=== PATIENT | female | born 1960 | race Caucasian/White ===

== ENCOUNTER 2016-12-15 18:29 | Inpatient (IN) | payer BC ==
[~2016-12-15] VITALS: Ht 172.7 cm; Wt 144.2 kg
[2016-12-15 18:34] VITALS: BP 142/67; PULSE 87; RESP 16; TEMP 98.2; O2SAT 98
--- NOTE | 2016-12-15 18:53 | PD ---
HPI . Altered mental status x few hours Chief Complaint: Altered Mental Status Time Seen by Provider: 18:53 Travel History International Travel<30 days: No Contact w/Intl Traveler<30days: No Traveled to known affect area: No History of Present Illness HPI 56-year-old female with history of diabetes, peripheral neuropathy, hypertension , and hyperlipidemia here with a few hours worth of altered mental status. Patient was with her friends and all of sudden became somewhat confused. She was telling them that she was in [place]. Patient reports that she had a fever a week ago that subsided. However he suddenly reappeared today. She does have what appears to be an abscess in her right groin and tells me that that's been there for about 2-3 days. She's not had time to show this to anyone and has not taken any medications for this. She has no other complaints. She is allergic to penicillin. She is accompanied by several of her friends. Per her friends, they were at a conference and patient was dozing off. Initially the thought she was just sleepy, however they noticed that she was more lethargic than usual. She also had some chills. Apparently when patient went to stand up she was just wobbling a little bit and had some visible shaking , which friends attributed to chills. She was telling them that she was living in [place]. She also did not recall their names. PFSH Past Medical History Diabetes: Yes Social History Tobacco Use: No Allergies-Medications (Allergen,Severity, Reaction): Coded Allergies: Penicillin (Verified Allergy, Unknown, 12/15/16) Reported Meds & Prescriptions Reported Meds & Active Scripts Active Reported Metformin (Metformin HCl) 500 Mg Tab 500 Mg PO TIDPC With meals Percocet (Oxycodone-Acetaminophen) 5-325 mg Tab 1 Tab PO DAILY PRN Review of Systems General / Constitutional: No: Fever Eyes: No: Visual changes HENT: No: Headaches Cardiovascular: No: Chest Pain or Discomfort Respiratory: No: Shortness of Breath Gastrointestinal: No: Abdominal Pain Genitourinary: No: Dysuria Musculoskeletal: No: Pain Skin: No Rash Neurologic: No: Weakness Psychiatric: No: Depression Endocrine: No: Polydipsia Hematologic/Lymphatic: No: Easy Bruising Physical Exam Narrative GENERAL: AAO x 3, no acute distress, Well-nourished, well-developed patient. morbidly obese SKIN: Warm and dry. No visible rashes or bruising. large 9 cm induration in the right groin, tender to touch, erythematous and warm. HEAD: Normocephalic and atraumatic. EYES: No scleral icterus. No injection or drainage. EOM intact, PERRLA ENT: No nasal drainage noted. Mucous membranes pink. Airway patent. NECK: Supple, trachea midline. No JVD. no lymphadenopathy CARDIOVASCULAR: Regular rate and rhythm without murmurs, gallops, or rubs. RESPIRATORY: Breath sounds equal bilaterally. No accessory muscle use. No rhonchi or rales. GASTROINTESTINAL: Abdomen soft, non-tender, nondistended. No rebound or guarding. EXTREMITIES: No cyanosis or edema. BACK: No obvious deformity. No CVA tenderness. NEURO: CN II-12 intact, supervisor sample strength normal b/l, UE and LE 5/5, no focal deficits PSYCH: AAO x 3, normal affect. Data Data Last Documented VS Vital Signs Date Time Temp Pulse Resp B/P Pulse Ox O2 Delivery O2 Flow Rate FiO2 12/15/16 19:03 102.7 92 16 135/60 95 Room Air Orders Complete Blood Count With Diff (12/15/16 18:59) Comprehensive Metabolic Panel (12/15/16 18:59) Prothrombin Time / Inr (Pt) (12/15/16 18:59) Act Partial Throm Time (Ptt) (12/15/16 18:59) Lactic Acid Sepsis Protocol (12/15/16 18:59) Urinalysis - C+S If Indicated (12/15/16 18:59) Blood Culture (12/15/16 18:59) Chest, Single Ap (12/15/16 18:59) Blood Glucose (12/15/16 18:59) Ecg Monitoring (12/15/16 18:59) Iv Access Insert/Monitor (12/15/16 18:59) Oximetry (12/15/16 18:59) Oxygen Administration (12/15/16 18:59) Us Soft Tissue (12/15/16 ) Acetaminophen (Tylenol) (12/15/16 19:30) Sodium Chlor 0.9% 1000 Ml Inj (Ns 1000 M (12/15/16 19:30) Lidocai-Epi 1%-1:100,000 Inj (Xylocaine- (12/15/16 19:58) Aztreonam Inj (Azactam Inj) (12/15/16 20:12) Metronidazole 500 Mg Inj (Flagyl 500 Mg (12/15/16 20:12) Vancomycin Inj (Vancomycin Inj) (12/15/16 20:12) Admit Order (Ed Use Only) (12/15/16 20:12) Labs Laboratory Tests Test 12/15/16 19:05 White Blood Count 15.6 TH/MM3 Red Blood Count 4.33 MIL/MM3 Hemoglobin 12.6 GM/DL Hematocrit 38.3 % Mean Corpuscular Volume 88.5 FL Mean Corpuscular Hemoglobin 29.1 PG Mean Corpuscular Hemoglobin 32.8 % Concent Red Cell Distribution Width 15.5 % Platelet Count 211 TH/MM3 Mean Platelet Volume 10.5 FL Neutrophils (%) (Auto) 72.6 % Lymphocytes (%) (Auto) 14.1 % Monocytes (%) (Auto) 12.0 % Eosinophils (%) (Auto) 1.0 % Basophils (%) (Auto) 0.3 % Neutrophils # (Auto) 11.3 TH/MM3 Lymphocytes # (Auto) 2.2 TH/MM3 Monocytes # (Auto) 1.9 TH/MM3 Eosinophils # (Auto) 0.2 TH/MM3 Basophils # (Auto) 0.0 TH/MM3 CBC Comment DIFF FINAL Differential Comment Prothrombin Time 11.4 SEC Prothromb Time International 1.0 RATIO Ratio Activated Partial 28.7 SEC Thromboplast Time Sodium Level 134 MEQ/L Potassium Level 4.2 MEQ/L Chloride Level 102 MEQ/L Carbon Dioxide Level 23.9 MEQ/L Anion Gap 8 MEQ/L Blood Urea Nitrogen 24 MG/DL Creatinine 1.01 MG/DL Estimat Glomerular Filtration 57 ML/MIN Rate Random Glucose 168 MG/DL Lactic Acid Level 1.7 mmol/L Calcium Level 8.3 MG/DL Total Bilirubin 0.3 MG/DL Aspartate Amino Transf 19 U/L (AST/SGOT) Alanine Aminotransferase 20 U/L (ALT/SGPT) Alkaline Phosphatase 118 U/L Total Protein 7.1 GM/DL Albumin 3.0 GM/DL MDM Medical Decision Making Medical Screen Exam Complete: Yes Emergency Medical Condition: Yes Medical Record Reviewed: Yes Differential Diagnosis sepsis, inguinal abscess, less likely CVA Narrative Course 56-year-old female here with altered mental status. She is febrile. I believe her symptoms are related to an abscess that she has in her right inguinal area. IV access was obtained. Patient placed on continuous cardiac monitoring. Labs , chest x-ray and soft tissue ultrasound have been ordered. Tylenol for fever. IV fluids started. Laboratory Tests Test 12/15/16 19:05 White Blood Count 15.6 TH/MM3 Red Blood Count 4.33 MIL/MM3 Hemoglobin 12.6 GM/DL Hematocrit 38.3 % Mean Corpuscular Volume 88.5 FL Mean Corpuscular Hemoglobin 29.1 PG Mean Corpuscular Hemoglobin 32.8 % Concent Red Cell Distribution Width 15.5 % Platelet Count 211 TH/MM3 Mean Platelet Volume 10.5 FL Neutrophils (%) (Auto) 72.6 % Lymphocytes (%) (Auto) 14.1 % Monocytes (%) (Auto) 12.0 % Eosinophils (%) (Auto) 1.0 % Basophils (%) (Auto) 0.3 % Neutrophils # (Auto) 11.3 TH/MM3 Lymphocytes # (Auto) 2.2 TH/MM3 Monocytes # (Auto) 1.9 TH/MM3 Eosinophils # (Auto) 0.2 TH/MM3 Basophils # (Auto) 0.0 TH/MM3 CBC Comment DIFF FINAL Differential Comment Prothrombin Time 11.4 SEC Prothromb Time International 1.0 RATIO Ratio Activated Partial 28.7 SEC Thromboplast Time Sodium Level 134 MEQ/L Potassium Level 4.2 MEQ/L Chloride Level 102 MEQ/L Carbon Dioxide Level 23.9 MEQ/L Anion Gap 8 MEQ/L Blood Urea Nitrogen 24 MG/DL Creatinine 1.01 MG/DL Estimat Glomerular Filtration 57 ML/MIN Rate Random Glucose 168 MG/DL Lactic Acid Level 1.7 mmol/L Calcium Level 8.3 MG/DL Total Bilirubin 0.3 MG/DL Aspartate Amino Transf 19 U/L (AST/SGOT) Alanine Aminotransferase 20 U/L (ALT/SGPT) Alkaline Phosphatase 118 U/L Total Protein 7.1 GM/DL Albumin 3.0 GM/DL Last Impressions Chest X-Ray 12/15/16 1859 Signed Impressions: Service Date/Time: Thursday, December 15, 2016 18:57 - CONCLUSION: No acute disease. David Fermin MD Soft Tissue Ultrasound 12/15/16 0000 Signed Impressions: Service Date/Time: Thursday, December 15, 2016 19:03 - CONCLUSION: 1. Complex fluid collection in right groin as above. Differential diagnosis includes infection and abscess. David Fermin MD Patient gave verbal consent to I&D. I&D performed by Dr. Smith, please refer to her note for procedure details. Antibiotics started. Dr. Smith discussed the case with Dr. Ruiz for admission. Patient was in agreement with recommendations for admission. Diagnosis Primary Impression: Sepsis Qualified Code: A41.9 - Sepsis, due to unspecified organism Additional Impression: Abscess Admitting Information Admitting Physician Requests: Admit Condition: Stable Wanda Lutz Dec 15, 2016 18:53
[2016-12-15 19:01] VITALS: RESP 20; O2SAT 94
[2016-12-15 19:03] VITALS: BP 135/60; PULSE 92; RESP 16; TEMP 102.7; O2SAT 95
--- NOTE | 2016-12-15 19:25 | RADRPT ---
EXAM DATE/TIME: 12/15/2016 18:57 [facility] COMPARISON: No previous studies available for comparison. INDICATIONS : Fever. MEDICAL HISTORY : Hypercholesterolemia. Hypertension Diabetes mellitus type II. SURGICAL HISTORY : Hysterectomy. ENCOUNTER: Initial ACUITY: 1 day PAIN SCORE: 0/10 LOCATION: Bilateral chest FINDINGS: A single view of the chest demonstrates the lungs to be symmetrically aerated without evidence of mas s, infiltrate or effusion. The cardiomediastinal contours are unremarkable. Osseous structures are intact. CONCLUSION: No acute disease. David Fermin MD on December 15, 2016 at 19:22 Board Certified Radiologist. This report was verified electronically.
[2016-12-15] MEDS ORDERED: SODIUM CHLOR 0.9% 1000 ML INJ 1,000 ML IV ONE (19:30)
[2016-12-15] MEDS ORDERED: ACETAMINOPHEN 325 MG TAB PO ONE (19:30)
[2016-12-15 19:40] LABS: AUTOMATED NEUTROPHIL # 11.3 TH/MM3 (1.8-7.7); BASOPHIL % 0.3 % (0.0-2.0); EOSINOPHIL # 0.2 TH/MM3 (0-0.4); HEMATOCRIT 38.3 % (35.0-46.0); HEMO FLAGS DIFF FINAL; LYMPH % 14.1 % (9.0-44.0); LYMPHOCYTE # 2.2 TH/MM3 (1.0-4.8); MEAN CELL VOLUME 88.5 FL (80.0-100.0); MEAN CORPUSCULAR HEMOGLOBIN 29.1 PG (27.0-34.0); MEAN CORPUSCULAR HGB CONC 32.8 % (32.0-36.0); NEUT % 72.6 % (16.0-70.0); PLATELET COUNT 211 TH/MM3 (150-450); RED BLOOD COUNT 4.33 MIL/MM3 (4.00-5.30); RED CELL DISTRIBUTION WIDTH 15.5 % (11.6-17.2); WHITE BLOOD COUNT 15.6 TH/MM3 (4.0-11.0)
--- NOTE | 2016-12-15 19:47 | RADRPT ---
EXAM DATE/TIME: 12/15/2016 19:03 [facility] COMPARISON: No previous studies available for comparison. INDICATIONS : Right groin abscess. MEDICAL HISTORY : Hypercholesterolemia. Hypertension. Diabetes. Right groin redness and swelling. SURGICAL HISTORY : Tubal ligation. Hysterectomy. ENCOUNTER: Initial ACUITY: 1 week PAIN SCORE: 5/10 LOCATION: Right groin. AREA EVALUATED: Right inguinal canal. FINDINGS: There is a complex hypoechoic fluid collection in the right groin measuring up to 2.7 x 0.8 cm and up to 10.8 cm in length. Finding is nonspecific but cannot exclude infection. CONCLUSION: 1. Complex fluid collection in right groin as above. Differential diagnosis includes infection and ab scess. David Fermin MD on December 15, 2016 at 19:44 Board Certified Radiologist. This report was verified electronically.
[2016-12-15 19:51] LABS: APTT (PATIENT) 28.7 SEC (24.3-30.1); PROTHROMBIN TIME - PATIENT 11.4 SEC (9.8-11.6)
[2016-12-15 19:53] LABS: ALT (GPT) 20 U/L (10-53); ANION GAP 8 MEQ/L (5-15); AST (GOT) 19 U/L (15-37); BICARBONATE 23.9 MEQ/L (21.0-32.0); BLOOD UREA NITROGEN 24 MG/DL (7-18); CHLORIDE 102 MEQ/L (98-107); GLOMERULAR FILTRATION RATE 57 ML/MIN (>89); POTASSIUM 4.2 MEQ/L (3.5-5.1); SODIUM (NA) 134 MEQ/L (136-145)
[2016-12-15] MEDS ORDERED: PERC5TAB12 PO (19:54)
[2016-12-15] MEDS ORDERED: METF500T PO (19:54)
[2016-12-15 19:55] LABS: ALKALINE PHOSPHATASE 118 U/L (45-117); TOTAL BILIRUBIN ADULT 0.3 MG/DL (0.2-1.0)
[2016-12-15] MEDS ORDERED: LIDOCAINE 1%/EPINEPHrine 1:100,000 SOLN 30 ML VIAL ONE (19:58)
[2016-12-15] MEDS ORDERED: metroNIDAZOLE 500 MG INJ 100 ML IV STA (20:12)
[2016-12-15] MEDS ORDERED: AZTREONAM INJ 2,000 MG in SODIUM CHLORIDE 0.9% INJ 100 ML IV STA (20:12)
[2016-12-15] MEDS ORDERED: VANCOMYCIN INJ 1,000 MG in SODIUM CHLOR 0.9% 250 ML INJ 250 ML IV STA (20:12)
--- NOTE | 2016-12-15 20:17 | PD ---
Data Data Last Documented VS Vital Signs Date Time Temp Pulse Resp B/P Pulse Ox O2 Delivery O2 Flow Rate FiO2 12/15/16 19:03 102.7 92 16 135/60 95 Room Air Orders Complete Blood Count With Diff (12/15/16 18:59) Comprehensive Metabolic Panel (12/15/16 18:59) Prothrombin Time / Inr (Pt) (12/15/16 18:59) Act Partial Throm Time (Ptt) (12/15/16 18:59) Lactic Acid Sepsis Protocol (12/15/16 18:59) Urinalysis - C+S If Indicated (12/15/16 18:59) Blood Culture (12/15/16 18:59) Chest, Single Ap (12/15/16 18:59) Blood Glucose (12/15/16 18:59) Ecg Monitoring (12/15/16 18:59) Iv Access Insert/Monitor (12/15/16 18:59) Oximetry (12/15/16 18:59) Oxygen Administration (12/15/16 18:59) Us Soft Tissue (12/15/16 ) Acetaminophen (Tylenol) (12/15/16 19:30) Sodium Chlor 0.9% 1000 Ml Inj (Ns 1000 M (12/15/16 19:30) Lidocai-Epi 1%-1:100,000 Inj (Xylocaine- (12/15/16 19:58) Aztreonam Inj (Azactam Inj) (12/15/16 20:12) Metronidazole 500 Mg Inj (Flagyl 500 Mg (12/15/16 20:12) Vancomycin Inj (Vancomycin Inj) (12/15/16 20:12) Admit Order (Ed Use Only) (12/15/16 20:12) Labs Laboratory Tests Test 12/15/16 19:05 White Blood Count 15.6 TH/MM3 Red Blood Count 4.33 MIL/MM3 Hemoglobin 12.6 GM/DL Hematocrit 38.3 % Mean Corpuscular Volume 88.5 FL Mean Corpuscular Hemoglobin 29.1 PG Mean Corpuscular Hemoglobin 32.8 % Concent Red Cell Distribution Width 15.5 % Platelet Count 211 TH/MM3 Mean Platelet Volume 10.5 FL Neutrophils (%) (Auto) 72.6 % Lymphocytes (%) (Auto) 14.1 % Monocytes (%) (Auto) 12.0 % Eosinophils (%) (Auto) 1.0 % Basophils (%) (Auto) 0.3 % Neutrophils # (Auto) 11.3 TH/MM3 Lymphocytes # (Auto) 2.2 TH/MM3 Monocytes # (Auto) 1.9 TH/MM3 Eosinophils # (Auto) 0.2 TH/MM3 Basophils # (Auto) 0.0 TH/MM3 CBC Comment DIFF FINAL Differential Comment Prothrombin Time 11.4 SEC Prothromb Time International 1.0 RATIO Ratio Activated Partial 28.7 SEC Thromboplast Time Sodium Level 134 MEQ/L Potassium Level 4.2 MEQ/L Chloride Level 102 MEQ/L Carbon Dioxide Level 23.9 MEQ/L Anion Gap 8 MEQ/L Blood Urea Nitrogen 24 MG/DL Creatinine 1.01 MG/DL Estimat Glomerular Filtration 57 ML/MIN Rate Random Glucose 168 MG/DL Lactic Acid Level 1.7 mmol/L Calcium Level 8.3 MG/DL Total Bilirubin 0.3 MG/DL Aspartate Amino Transf 19 U/L (AST/SGOT) Alanine Aminotransferase 20 U/L (ALT/SGPT) Alkaline Phosphatase 118 U/L Total Protein 7.1 GM/DL Albumin 3.0 GM/DL MDM Supervised Visit with [facility]: Yes Narrative Course I, Dr. Smith, have reviewed the advance practice practioner's documentation and am in agreement, met with the patient face to face, made the diagnosis, and the medical decision making was done by me. *My assessment and Findings: 56-year-old morbidly obese diabetic female here with altered mental status, fever. She is here vacationing for continuing education from [place]. Has had several days of swelling and redness in the right groin. Exam shows induration and questionable fluctuance in the right groin. Cellulitis versus abscess. Patient is slightly tachycardic, febrile and confused, believe she still in [place]. Patient was given IV fluids, antibiotics therapy, ultrasound shows abscess within the right groin. I&D performed by myself, please see procedure note. Patient has leukocytosis, though thankfully no lactic acidosis. Will be admitted for sepsis and IV antibiotic therapy, Gen. surgery consult should her wound need further drainage. Critical Care Narrative Aggregate critical care time was 40 minutes. Time to perform other separately billable procedures was not included in the critical care time. My time did not include minutes spent treating any other patients simultaneously or on activities that did not directly contribute to the patient's treatment. The services I provided to this patient were to treat and/or prevent clinically significant deterioration that could result in: Cardiopulmonary decompensation, , disability I provided critical care services requiring my management, as noted below: Chart data review, documentation time, medication orders and management, vital sign assessments/reviewing monitor data, ordering and reviewing lab tests, ordering and interpreting/reviewing x-rays and diagnostic studies, care of the patient and discussion of the patient with the admitting physicians. Procedures Procedure Narrative INCISION AND DRAINAGE OF ABSCESS: The area was prepped and was sterilely draped. A subcutaneous wheal of 1% Xylocaine epinephrine with a total number 12 mL was used to anesthetize the area. The area was properly anesthetized. A number 11 blade scalpel was used to make a cruciate 1.5-cm incision across the area of the abscess. Cultures were obtained. The abscess was drained an irrigated with normal saline. Quarter inch iodoform packing was placed in the wound. Sterile dressing applied. Patient advised to have packing removed in two days. Sepsis Criteria SIRS Criteria (2 or more): Temp > 100.9 or < 96.8, Heart rate over 90, WBC > 27139, < 4000 or > 10% bands Sepsis Criteria (SIRS+source): Infect source susp/known Criteria Outcome: Meets SIRS criteria, Meets sepsis criteria Diagnosis Primary Impression: Sepsis Qualified Code: A41.9 - Sepsis, due to unspecified organism Additional Impression: Abscess Admitting Information Admitting Physician Requests: Admit Condition: Stable Mitzy Smith MD Dec 15, 2016 20:16
--- NOTE | 2016-12-15 20:26 | HHI.HP ---
[facility] No Primary Care Physician Admission Diagnosis sepsis, right groin abscess Diagnoses: (1) Sepsis Diagnosis: Principal (2) Groin abscess Diagnosis: Principal (3) Renal insufficiency Diagnosis: Principal (4) Dehydration Diagnosis: Principal (5) DM (diabetes mellitus) Diagnosis: Principal Travel History International Travel<30 Days: No Contact w/Intl Traveler <30 Da: No Traveled to Known Affected Are: No History of Present Illness This is a 56-year-old female with PMH of HTN, Hyperlipidemia and DM who was brought to the ER secondary to episode of confusion noted by friends. Patient is here for a conference and visiting from [place] however believed she was still in her home town. Friends became concerned and called EMS. Pt does note fever today. Also stated she has abscess in right groin x3 days however did not seek medical attention for it. On arrival, BP 142/67, HR 87, O2 sat 98% on RA, Temp 102.7. He 15.6. Creatinine 1.01. GFR 57. Lactic Acid 1.7. INR 1.0. CXR with no acute findings. Soft Tissue US complex fluid collection right groin. On exam, pt noted to have large groin abscess approx 10cm wide, 3cm deep, s/p I& D in ER w/ significant amount of foul-smelling purulent drainage. Gen Sx consulted for further eval. S/p Blood/Wound Culture in ER, Vanc/Azactam/Flagyl due to PCN Allergy. Review of Systems Except as stated in HPI: all other systems reviewed are Neg ROS: 14 point review of systems otherwise negative. Past Family Social History Past Medical History PMH: HTN, Hyperlipidemia and DM Past Surgical History PAST SURGICAL HISTORY: Tubal Ligation, Hysterectomy Allergies: Coded Allergies: Penicillin (Verified Allergy, Unknown, 12/15/16) Family History PAST FAMILY HISTORY: Reviewed. No h/o DM or CAD Social History PAST SOCIAL HISTORY: Negative for alcohol, tobacco or drugs. Physical Exam Vital Signs Vital Signs Date Time Temp Pulse Resp B/P Pulse Ox O2 Delivery O2 Flow Rate FiO2 12/15/16 19:03 102.7 92 16 135/60 95 Room Air 12/15/16 19:01 20 94 Room Air 12/15/16 18:34 98.2 87 16 142/67 98 Physical Exam PE: GENERAL: Middle-aged white female in no acute distress. HEENT: PERRLA, EOMI. No scleral icterus or conjunctival pallor. No lid lag or facial droop. CARDIOVASCULAR: Regular rate and rhythm. No obvious murmurs to auscultation. No chest tenderness to palpation. RESPIRATORY: No obvious rhonchi or wheezing. Clear to auscultation. Breath sounds equal bilaterally. GASTROINTESTINAL: Abdomen soft, non-tender, nondistended. BS normal. MUSCULOSKELETAL: Extremities without clubbing, cyanosis, or edema. No obvious deformities. Right groin abscess, s/p I&D NEUROLOGICAL: Awake, alert and oriented x4. No focal neurologic deficits. Moving both upper and lower extremities spontaneously. Laboratory Laboratory Tests Test 12/15/16 19:05 White Blood Count 15.6 Red Blood Count 4.33 Hemoglobin 12.6 Hematocrit 38.3 Mean Corpuscular Volume 88.5 Mean Corpuscular Hemoglobin 29.1 Mean Corpuscular Hemoglobin 32.8 Concent Red Cell Distribution Width 15.5 Platelet Count 211 Mean Platelet Volume 10.5 Neutrophils (%) (Auto) 72.6 Lymphocytes (%) (Auto) 14.1 Monocytes (%) (Auto) 12.0 Eosinophils (%) (Auto) 1.0 Basophils (%) (Auto) 0.3 Neutrophils # (Auto) 11.3 Lymphocytes # (Auto) 2.2 Monocytes # (Auto) 1.9 Eosinophils # (Auto) 0.2 Basophils # (Auto) 0.0 CBC Comment DIFF FINAL Differential Comment Prothrombin Time 11.4 Prothromb Time International 1.0 Ratio Activated Partial 28.7 Thromboplast Time Sodium Level 134 Potassium Level 4.2 Chloride Level 102 Carbon Dioxide Level 23.9 Anion Gap 8 Blood Urea Nitrogen 24 Creatinine 1.01 Estimat Glomerular Filtration 57 Rate Random Glucose 168 Lactic Acid Level 1.7 Calcium Level 8.3 Total Bilirubin 0.3 Aspartate Amino Transf 19 (AST/SGOT) Alanine Aminotransferase 20 (ALT/SGPT) Alkaline Phosphatase 118 Total Protein 7.1 Albumin 3.0 Date/Time Procedure Status Source Growth 12/15/16 19:00 Aerobic Blood Culture Received Blood Peripheral Pending 12/15/16 19:00 Anaerobic Blood Culture Received Blood Peripheral Pending Result Diagram: 12/15/16190412/15/161904 Assessment and Plan Problem List: (1) Sepsis ICD Code: A41.9 Status: Acute (2) Groin abscess ICD Code: L02.214 Status: Acute (3) Dehydration ICD Code: E86.0 Status: Acute (4) Renal insufficiency ICD Code: N28.9 Status: Acute (5) DM (diabetes mellitus) ICD Code: E11.9 Status: Acute Assessment and Plan A/P: 1. Sepsis: AMS, Temp 102.7, HR 92, WBC 15.1, Source-Right Groin Abscess. S/p Blood/Wound Cultures, Vanc/Azactam/Flagyl. Follow up cultures, continue w/ IV Abx. 2. Right Groin Abscess: x2-3 days, no previous antibiotics, did not seek medical attention, now w/ sepsis/AMS. S/p I&D in ER of 10cm x 3cm abscess w/ foul-smelling, purulent drainage. Follow up cultures. Gen Sx consulted by ER physician for possible need for surgical debridement. Continue w/ IV Abx. 3. Renal Insufficiency: Creatinine 1.01, no previous labs for comparison. U/ a pending. IVF for hydration. 4. Dehydration: Likely secondary to sepsis. GFR 57. IVF for hydration, repeat labs in am. 5. DM: Sliding scale w/ Accu-Cheks. Hold Metformin in light of renal insufficiency/sepsis. 6. DVT Prophylaxis: Mechanical contraindication secondary to lower ext wound. 7. Social work for d/c planning as needed. 8. Case discussed w/ ER physician at length. Physician Certification 2 Midnight Certification Type: Admission for Inpatient Services Order for Inpatient Services The services are ordered in accordance with Medicare regulations or non- Medicare payer requirements, as applicable. In the case of services not specified as inpatient-only, they are appropriately provided as inpatient services in accordance with the 2-midnight benchmark. Estimated LOS (days): 2 days is the estimated time the patient will need to remain in the hospital, assuming treatment plan goals are met and no additional complications. Post-Hospital Plan: Not yet determined Problem Qualifiers (1) Sepsis: Qualified Code: A41.9 - Sepsis, due to unspecified organism Jailyn Ruiz MD Dec 15, 2016 20:26
[2016-12-15] MEDS ORDERED: DEXTROSE 50% IN WATER 50 ML VIAL(D50) IV PRN (20:30)
[2016-12-15] MEDS ORDERED: ONDANSETRON HCL 4 MG/2 ML VIAL IVP PRN (20:30)
[2016-12-15] MEDS ORDERED: Vancomycin Consult Pharmacy 1 EA OTHER SCH (20:30)
[2016-12-15] MEDS ORDERED: GLUCAGON 1 MG/ML VIAL OTHER PRN (20:30)
[2016-12-15] MEDS ORDERED: ACETAMINOPHEN 325 MG TAB PO PRN (20:30)
[2016-12-15] MEDS ORDERED: MAGNESIUM HYDROXIDE SUSP 30 ML CUP PO PRN (20:30)
[2016-12-15] MEDS ORDERED: SENNOSIDES 8.6 MG TAB PO PRN (20:30)
[2016-12-15] MEDS ORDERED: SODIUM CHLORIDE 0.9% FLUSH 10 ML FLUSH IV FLUSH PRN (20:30)
[2016-12-15] MEDS ORDERED: MORPHINE SULFATE 4 MG/ML INJ IV PRN (20:30)
[2016-12-15] MEDS ORDERED: BISACODYL 10 MG SUPP RECTAL PRN (20:30)
[2016-12-15] MEDS ORDERED: LACTULOSE SYRUP 20 GM/30 ML CUP PO PRN (20:30)
[2016-12-15 20:57] VITALS: BP 138/58; PULSE 88; RESP 14; O2SAT 96
[2016-12-15] MEDS: SODIUM CHLOR 0.9% 1000 ML INJ 1,000 ML IV SCH (21:20)
[2016-12-15] MEDS: DOCUSATE SODIUM 50 MG/SENNA 8.6 MG TAB PO SCH (21:20)
[2016-12-15] MEDS: SODIUM CHLORIDE 0.9% FLUSH 10 ML FLUSH IV FLUSH SCH (21:20)
[2016-12-15] MEDS: INSULIN ASPART SUPPLEMENTAL SCALE SQ SCH (21:20)
[2016-12-15 22:00] VITALS: BP 118/57; PULSE 92; RESP 18; TEMP 98.6; O2SAT 95
[2016-12-15 22:56] VITALS: PULSE 91
[2016-12-15 23:39] LABS: BACTERIA, URINE FEW /hpf; BLOOD, URINE NEG (NEG); GLUCOSE,URINE NEG (NEG); KETONE, URINE NEG (NEG); MUCUS URINE FEW /lpf (OCC); NITRITE,URINE NEG (NEG); PH, URINE 5.5 (5.0-8.5); SQUAMOUS EPITHELIAL CELL URINE 1 /hpf (0-5); URINE COLOR YELLOW (YELLW/STRAW)
[2016-12-15 23:41] LABS: COMMENT (UR) CATH-CULTURE IND; CULTURE IF INDICATED CATH CULTURE IND
[2016-12-16] VITALS (8 sets, daily range): BP systolic 98–151; BP diastolic 51–70; PULSE 73–99; RESP 18–20; TEMP 97.4–100.3; O2SAT 93–97
[2016-12-16] MEDS: metroNIDAZOLE 500 MG INJ 100 ML IV SCH ×3 (06:02→21:24)
[2016-12-16] MEDS: INSULIN ASPART SUPPLEMENTAL SCALE SQ SCH ×4 (06:04→20:15)
[2016-12-16] MEDS: SODIUM CHLOR 0.9% 1000 ML INJ 1,000 ML IV SCH ×2 (06:05→17:02)
[2016-12-16] MEDS: AZTREONAM INJ 1,000 MG in SODIUM CHLORIDE 0.9% INJ 100 ML IV SCH ×3 (06:27→22:20)
[2016-12-16] MEDS ORDERED: TRAM50TA PO (07:53)
[2016-12-16] MEDS ORDERED: IBUP200C PO (07:58)
[2016-12-16] MEDS ORDERED: LISI-515 PO (07:58)
[2016-12-16] MEDS ORDERED: PERC2.5T PO (07:58)
[2016-12-16] MEDS ORDERED: GABA600T PO (08:01)
[2016-12-16] MEDS ORDERED: GLIP5TAB8 PO (08:06)
[2016-12-16] MEDS: VANCOMYCIN INJ 1,250 MG in SODIUM CHLOR 0.9% 250 ML INJ 250 ML IV SCH ×2 (08:11→20:13)
[2016-12-16] MEDS: DOCUSATE SODIUM 50 MG/SENNA 8.6 MG TAB PO SCH ×2 (08:13→20:14)
[2016-12-16] MEDS: SODIUM CHLORIDE 0.9% FLUSH 10 ML FLUSH IV FLUSH SCH ×2 (08:14→20:13)
[2016-12-16] MEDS ORDERED: PHARMACY ORDERED LAB ONE (08:45)
[2016-12-16] MEDS ORDERED: TOPA50TA7 PO (11:18)
[2016-12-16] MEDS ORDERED: LISI-519 PO (11:18)
[2016-12-16] MEDS ORDERED: CETI10CA3 (11:18)
[2016-12-16] MEDS ORDERED: RIBO50TA (11:20)
--- NOTE | 2016-12-16 12:56 | HHI.PR ---
Subjective Remarks Febrile overnight to 100.3. Vital signs stable. Patient continues to complain of pain in her right groin. Endorses fullness and warmth in the area. Endorses subjective fever. Denies nausea/vomiting/diarrhea. Mental status is improved, patient alert and oriented 3. Objective Vitals Vital Signs Date Time Temp Pulse Resp B/P Pulse Ox O2 Delivery O2 Flow Rate FiO2 12/16/16 12:00 99.6 92 20 118/61 94 12/16/16 08:00 Room Air 12/16/16 08:00 98.7 93 20 110/62 95 12/16/16 04:00 100.2 99 18 136/61 93 12/16/16 03:47 Room Air 12/16/16 00:00 Room Air 12/16/16 00:00 100.3 98 18 141/60 97 12/15/16 22:56 91 12/15/16 22:00 98.6 92 18 118/57 95 12/15/16 20:57 88 14 138/58 96 Room Air 12/15/16 19:03 102.7 92 16 135/60 95 Room Air 12/15/16 19:01 20 94 Room Air 12/15/16 18:34 98.2 87 16 142/67 98 I/O 12/15/16 12/15/16 12/15/16 12/16/16 12/16/16 12/16/16 07:00 15:00 23:00 07:00 15:00 23:00 Intake Total 120 ml 1370 ml Output Total 200 ml 850 ml Balance -80 ml 520 ml Intake Oral 120 ml 120 ml IV Total 1250 ml Output Urine Total 200 ml 850 ml # Bowel Movements 0 0 Result Diagram: 12/15/16190412/15/161904 Objective Remarks GENERAL: Middle-aged white female in no acute distress. HEENT: PERRLA, EOMI. No scleral icterus or conjunctival pallor. No lid lag or facial droop. CARDIOVASCULAR: Regular rate and rhythm. No obvious murmurs to auscultation. No chest tenderness to palpation. RESPIRATORY: No obvious rhonchi or wheezing. Clear to auscultation. Breath sounds equal bilaterally. GASTROINTESTINAL: Abdomen soft, non-tender, nondistended. BS normal. MUSCULOSKELETAL: Extremities without clubbing, cyanosis, or edema. No obvious deformities. Right groin abscess, s/p I&D with purulent drainage and packing. 10 cm x 4 cm area of induration and erythema. NEUROLOGICAL: Awake, alert and oriented x4. No focal neurologic deficits. Moving both upper and lower extremities spontaneously. A/P Problem List: (1) Sepsis ICD Code: A41.9 Status: Acute (2) Groin abscess ICD Code: L02.214 Status: Acute (3) Dehydration ICD Code: E86.0 Status: Acute (4) Renal insufficiency ICD Code: N28.9 Status: Acute (5) DM (diabetes mellitus) ICD Code: E11.9 Status: Acute Assessment and Plan 1. Sepsis: Febrile with leukocytosis. Patient presented with altered mental status, now resolved. S/p Blood/Wound Cultures no growth 1 day, Vanc/Azactam/ Flagyl as penicillin allergic. Follow up cultures, continue w/ IV Abx. 2. Right Groin Abscess: 1 week, no previous antibiotics, did not seek medical attention. S/p I&D in ER of 10cm x 3cm abscess w/ foul-smelling, purulent drainage. Follow up cultures. Gen Sx consulted for possible need for surgical debridement. Continue w/ IV Abx. 3. Renal Insufficiency: Creatinine 1.01, no previous labs for comparison. IVF for hydration. 4. UTI: Antibiotics as above 5. Dehydration: Likely secondary to sepsis. GFR 57. IVF for hydration, repeat labs in am. 6. DM: Sliding scale w/ Accu-Cheks. Hold Metformin in light of renal insufficiency/sepsis. Despite holding metformin, patient admitted that she took her own metformin this morning around 11 AM. Explained to patient the need for discontinuing metformin at this time. Patient agreeable to SSI and will do longer refuse insulin. 7. DVT Prophylaxis: Mechanical contraindication secondary to lower ext wound. 8. Social work for d/c planning as needed. Discharge Planning Pending cultures and Gen. surgery recommendations Problem Qualifiers (1) Sepsis: Qualified Code: A41.9 - Sepsis, due to unspecified organism Coleen Wells MD R3 Dec 16, 2016 12:55
[2016-12-16 14:24] LABS: AUTOMATED NEUTROPHIL # 16.2 TH/MM3 (1.8-7.7); BASOPHIL % 0.2 % (0.0-2.0); EOSINOPHIL % 0.1 % (0.0-4.0); HEMATOCRIT 34.1 % (35.0-46.0); HEMO FLAGS DIFF FINAL; LYMPH % 8.7 % (9.0-44.0); LYMPHOCYTE # 1.7 TH/MM3 (1.0-4.8); MEAN CELL VOLUME 88.3 FL (80.0-100.0); MEAN CORPUSCULAR HGB CONC 32.9 % (32.0-36.0); MONO % 6.5 % (0.0-8.0); NEUT % 84.5 % (16.0-70.0); PLATELET COUNT 163 TH/MM3 (150-450); RED BLOOD COUNT 3.87 MIL/MM3 (4.00-5.30); RED CELL DISTRIBUTION WIDTH 15.6 % (11.6-17.2); WHITE BLOOD COUNT 19.2 TH/MM3 (4.0-11.0)
[2016-12-16 14:44] LABS: ALT (GPT) 13 U/L (10-53); ANION GAP 7 MEQ/L (5-15); AST (GOT) 7 U/L (15-37); BICARBONATE 23.3 MEQ/L (21.0-32.0); BLOOD UREA NITROGEN 17 MG/DL (7-18); CHLORIDE 107 MEQ/L (98-107); GLOMERULAR FILTRATION RATE 59 ML/MIN (>89); POTASSIUM 3.8 MEQ/L (3.5-5.1); SODIUM (NA) 137 MEQ/L (136-145)
[2016-12-16 14:46] LABS: ALKALINE PHOSPHATASE 77 U/L (45-117); TOTAL BILIRUBIN ADULT 0.5 MG/DL (0.2-1.0)
--- NOTE | 2016-12-16 19:09 | MB ---
cc: KARIR HE M.D. DATE OF CONSULTATION: 12/16/2016. REASON FOR CONSULTATION: Sepsis, right groin abscess. HISTORY OF PRESENT ILLNESS: This is a pleasant 56-year-old female who is visiting from [place]. 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 She had noted a little bit of soreness in her right groin. She really was not too bothered with it. It then progressed to where she became incoherent and was brought her with severe mental status changes. It was found that she had this abscess and this was drained at the bedside by the emergency room physician and she has had complete resolution of her mental status changes with the drainage. Surgery was consulted for following the patient while she is in the hospital. PAST MEDICAL HISTORY: 1. 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 2. She has had head trauma in the past as well. 3. She has had a hysterectomy. 4. Tubal ligation. 5. Some chronic back problems. 6. She is diabetic. 7. She has a BMI of 45. Weight of 300. MEDICATIONS: 1. Zyrtec. 2. Gabapentin. 3. Glipizide. 4. Ibuprofen PRN. 5. Lisinopril. 6. Metformin. 7. Some Percocet. 8. Tramadol. PHYSICAL EXAMINATION: GENERAL: On examination, she is sitting up in a chair. She is comfortable, alert, oriented without deficits. ABDOMEN: Her abdomen is protuberant. Her right groin has an Iodoform packing in it and is indurated and there is some erythema. It is less tender than what she recalls. NEUROLOGIC: She is able to ambulate the room without difficulty. She is alert and oriented and appears cooperative. LABORATORY DATA: Cultures are pending. Her white count was 19, hemoglobin 11, hematocrit 34. Sugar is 175. Albumin is 2.5. Coags are normal. It looks like she has a urinary tract infection in addition. Again, cultures are pending. ASSESSMENT: Groin abscess drained by the emergency room personnel. She has a packing in place. The dressing was changed today. I think she has made a good recovery from yesterday according to the notes and to the patient. She did not recall going to dinner and that is when the emergency happened. At this point, I would continue antibiotic therapy, pull the packing and replace tomorrow. She would like to fly back on her scheduled flight on Saturday, which may be possible as long as she has follow up in [place], which she says she can arrange. We will be following her during her hospitalization. MD ROLANDO Cantor/BRADEN /5:46 PM /6:58 PM
[2016-12-16] MEDS: ACETAMINOPHEN/HYDROcodone 325 MG/5 MG TAB PO PRN (23:12)
[2016-12-17 04:00] VITALS: BP 117/56; PULSE 84; RESP 18; TEMP 98.2; O2SAT 93
[2016-12-17] MEDS: metroNIDAZOLE 500 MG INJ 100 ML IV SCH ×3 (04:20→21:16)
[2016-12-17] MEDS: ACETAMINOPHEN/HYDROcodone 325 MG/5 MG TAB PO PRN (04:22)
[2016-12-17] MEDS: SODIUM CHLOR 0.9% 1000 ML INJ 1,000 ML IV SCH ×3 (04:23→21:17)
[2016-12-17] MEDS: AZTREONAM INJ 1,000 MG in SODIUM CHLORIDE 0.9% INJ 100 ML IV SCH ×3 (05:53→21:16)
[2016-12-17] MEDS: INSULIN ASPART SUPPLEMENTAL SCALE SQ SCH ×4 (06:00→21:00)
[2016-12-17] MEDS ORDERED: PHARMACY ORDERED LAB ONE ×2 (06:45→07:45)
[2016-12-17 08:00] VITALS: BP 121/57; PULSE 79; RESP 20; TEMP 98; O2SAT 94
[2016-12-17 08:09] VITALS: PULSE 87
[2016-12-17] MEDS: DOCUSATE SODIUM 50 MG/SENNA 8.6 MG TAB PO SCH ×2 (09:00→21:00)
[2016-12-17] MEDS: SODIUM CHLORIDE 0.9% FLUSH 10 ML FLUSH IV FLUSH SCH ×2 (09:00→21:18)
[2016-12-17 09:03] LABS: AUTOMATED NEUTROPHIL # 14.8 TH/MM3 (1.8-7.7); BASOPHIL % 0.2 % (0.0-2.0); EOSINOPHIL # 0.1 TH/MM3 (0-0.4); EOSINOPHIL % 0.4 % (0.0-4.0); HEMATOCRIT 34.5 % (35.0-46.0); HEMO FLAGS DIFF FINAL; LYMPH % 11.8 % (9.0-44.0); LYMPHOCYTE # 2.1 TH/MM3 (1.0-4.8); MEAN CELL VOLUME 89.9 FL (80.0-100.0); MEAN CORPUSCULAR HEMOGLOBIN 28.4 PG (27.0-34.0); MEAN CORPUSCULAR HGB CONC 31.6 % (32.0-36.0); MONO % 6.3 % (0.0-8.0); NEUT % 81.3 % (16.0-70.0); PLATELET COUNT 174 TH/MM3 (150-450); RED BLOOD COUNT 3.83 MIL/MM3 (4.00-5.30); RED CELL DISTRIBUTION WIDTH 15.8 % (11.6-17.2); WHITE BLOOD COUNT 18.2 TH/MM3 (4.0-11.0)
[2016-12-17] MEDS: VANCOMYCIN INJ 1,250 MG in SODIUM CHLOR 0.9% 250 ML INJ 250 ML IV SCH (09:38)
[2016-12-17 09:49] LABS: BICARBONATE 23.9 MEQ/L (21.0-32.0); POTASSIUM 3.8 MEQ/L (3.5-5.1)
[2016-12-17] MEDS ORDERED: PROPOFOL 200 MG/20 ML AMP IV ONE (10:07)
[2016-12-17] MEDS ORDERED: NEOSTIGMINE 3 MG/3 ML SYR IV ONE (10:07)
[2016-12-17] MEDS ORDERED: ONDANSETRON HCL 4 MG/2 ML VIAL IV PUSH ONE (10:08)
--- NOTE | 2016-12-17 11:10 | HHI.PR ---
Subjective Subjective Notes DAILY PROGRESS NOTE FOR SURGICAL ATTENDING, DR. KARRI MCCABE Patient feels the groin is becoming more tender and more swollen Objective Vitals/I&O Vital Signs Date Time Temp Pulse Resp B/P Pulse Ox O2 Delivery O2 Flow Rate FiO2 12/17/16 08:09 87 12/17/16 08:00 98.0 20 121/57 94 12/17/16 00:00 Room Air Labs Laboratory Tests Test 12/16/16 12/17/16 13:45 08:30 White Blood Count 19.2 18.2 Red Blood Count 3.87 3.83 Hemoglobin 11.2 10.9 Hematocrit 34.1 34.5 Mean Corpuscular Volume 88.3 89.9 Mean Corpuscular Hemoglobin 29.0 28.4 Mean Corpuscular Hemoglobin 32.9 31.6 Concent Red Cell Distribution Width 15.6 15.8 Platelet Count 163 174 Mean Platelet Volume 10.5 9.6 Neutrophils (%) (Auto) 84.5 81.3 Lymphocytes (%) (Auto) 8.7 11.8 Monocytes (%) (Auto) 6.5 6.3 Eosinophils (%) (Auto) 0.1 0.4 Basophils (%) (Auto) 0.2 0.2 Neutrophils # (Auto) 16.2 14.8 Lymphocytes # (Auto) 1.7 2.1 Monocytes # (Auto) 1.2 1.2 Eosinophils # (Auto) 0.0 0.1 Basophils # (Auto) 0.0 0.0 CBC Comment DIFF FINAL DIFF FINAL Differential Comment Sodium Level 137 139 Potassium Level 3.8 3.8 Chloride Level 107 105 Carbon Dioxide Level 23.3 23.9 Anion Gap 7 10 Blood Urea Nitrogen 17 16 Creatinine 0.98 0.88 Estimat Glomerular Filtration 59 66 Rate Random Glucose 175 156 Calcium Level 8.0 8.3 Total Bilirubin 0.5 Aspartate Amino Transf 7 (AST/SGOT) Alanine Aminotransferase 13 (ALT/SGPT) Alkaline Phosphatase 77 Total Protein 6.2 Albumin 2.5 Vancomycin Level Trough 12.6 Date/Time Procedure Status Source Growth 12/15/16 22:15 Urine Culture - Final Complete Urine Catheterized Urine 50-100,000 CFU/ML MIXED GRAM POSITIVE... 12/15/16 20:20 Gram Stain - Final Resulted Wound Groin 12/15/16 20:20 Wound Culture - Preliminary Resulted Wound Groin NO GROWTH IN 24 HOURS. 12/15/16 19:00 Aerobic Blood Culture - Preliminary Resulted Blood Peripheral NO GROWTH IN 1 DAY 12/15/16 19:00 Anaerobic Blood Culture - Preliminary Resulted Blood Peripheral NO GROWTH IN 1 DAY Radiology Last Impressions Chest X-Ray 12/15/16 1859 Signed Impressions: Service Date/Time: Thursday, December 15, 2016 18:57 - CONCLUSION: No acute disease. Karri Fermin MD Soft Tissue Ultrasound 12/15/16 0000 Signed Impressions: Service Date/Time: Thursday, December 15, 2016 19:03 - CONCLUSION: 1. Complex fluid collection in right groin as above. Differential diagnosis includes infection and abscess. Karri Fermin MD Cardiovascular: Regular Lungs: Clear Narrative Exam Right groin more swollen packing removed Purulent material A/P Problem List: (1) Abscess (2) Dehydration (3) Sepsis (4) DM (diabetes mellitus) (5) Groin abscess Assessment and Plan 56-year-old diabetic with a large abscess to her right groin that was drained in the emergency room at this time feel it needs further debridement in the operating theater this was discussed with the patient in detail Patient ate a little breakfast and keep her nothing by mouth and put her on this afternoon Problem Qualifiers (1) Sepsis: Qualified Code: A41.9 - Sepsis, due to unspecified organism Karri Mccabe MD Dec 17, 2016 11:10
[2016-12-17 12:00] VITALS: BP 117/78; PULSE 74; RESP 20; TEMP 97.9; O2SAT 95
--- NOTE | 2016-12-17 12:33 | HHI.PR ---
Subjective Remarks Follow up for right groin cellulitis/abscess. The patient reports continued diffuse erythema, edema, and pain at right groin with large amount of purulent drainage from wound. Denies fevers/chills overnight. Denies chest pain, shortness of breath, abdominal pain, or nausea/vomiting. She's tolerating oral intake. Going to OR this afternoon for I&D +/- vac placement, patient verbalizes understanding and agrees with plan. Objective Vitals Vital Signs Date Time Temp Pulse Resp B/P Pulse Ox O2 Delivery O2 Flow Rate FiO2 12/17/16 08:09 87 12/17/16 08:00 98.0 79 20 121/57 94 12/17/16 04:00 98.2 84 18 117/56 93 12/17/16 00:00 Room Air 12/16/16 23:16 97.9 78 20 98/55 94 12/16/16 20:00 87 12/16/16 20:00 Room Air 12/16/16 18:47 97.4 80 20 151/70 97 12/16/16 16:00 97.8 73 20 102/51 93 I/O 12/16/16 12/16/16 12/16/16 12/17/16 12/17/16 12/17/16 07:00 15:00 23:00 07:00 15:00 23:00 Intake Total 1370 ml 480 ml 2382 ml 953 ml Output Total 850 ml Balance 520 ml 480 ml 2382 ml 953 ml Intake Oral 120 ml 480 ml 240 ml 120 ml IV Total 1250 ml 2142 ml 833 ml Output Urine Total 850 ml # Voids 2 4 2 # Bowel Movements 0 1 0 Result Diagram: 12/17/16 0830 12/17/16 0830 Imaging Last Impressions Chest X-Ray 12/15/16 1859 Signed Impressions: Service Date/Time: Thursday, December 15, 2016 18:57 - CONCLUSION: No acute disease. David Fermin MD Soft Tissue Ultrasound 12/15/16 0000 Signed Impressions: Service Date/Time: Thursday, December 15, 2016 19:03 - CONCLUSION: 1. Complex fluid collection in right groin as above. Differential diagnosis includes infection and abscess. David Fermin MD Objective Remarks GENERAL: Well-nourished, well-developed pleasant middle aged female patient in NAD. SKIN: Warm and dry. Right groin with diffuse 10cm x 5cm area of erythema/warmth/ edema/induration and abscess s/p I&D with purulent drainage. HEENT: Normocephalic. Atraumatic. Pupils equal and round. Mucous membranes pink and moist. NECK: Supple. Trachea midline. CARDIOVASCULAR: Regular rate and rhythm. S1, S2 noted. No murmur appreciated. RESPIRATORY: No accessory muscle use. Clear to auscultation. Breath sounds equal bilaterally. GASTROINTESTINAL: Abdomen soft, non-tender, nondistended. Normoactive bowel sounds x4. MUSCULOSKELETAL: No obvious deformities. Extremities without clubbing, cyanosis , or edema. NEUROLOGICAL: Awake and alert. No obvious cranial nerve deficits. Motor grossly within normal limits. Normal speech. PSYCHIATRIC: Appropriate mood and affect; insight and judgment normal. Medications and IVs Current Medications Medications (Trade) Dose Ordered Sig/Rin Route Start Time Stop Time Status Last Admin (D50w (Vial) Inj) 50 ml UNSCH PRN IV 12/15/16 20:30 Glucagon 1 mg 1 mg UNSCH PRN OTHER 12/15/16 20:30 (NS 1000 ml Inj) 1,000 ml @ 100 mls/hr Q10H IV 12/15/16 21:00 12/17/16 11:27 (NS Flush) 2 ml UNSCH PRN IV FLUSH 12/15/16 20:30 (NS Flush) 2 ml BID IV FLUSH 12/15/16 21:00 12/16/16 20:13 (Zofran Inj) 4 mg Q6H PRN IVP 12/15/16 20:30 (Tylenol) 650 mg Q6H PRN PO 12/15/16 20:30 12/16/16 03:25 ([place] 5-325 Mg) 1 tab Q4H PRN PO 12/15/16 20:30 12/17/16 04:22 (Morphine Inj) 2 mg Q3H PRN IV 12/15/16 20:30 (Anali-Colace) 1 tab BID PO 12/15/16 21:00 12/16/16 20:14 (Milk Of Magnesia Liq) 30 ml Q12H PRN PO 12/15/16 20:30 (Senokot) 17.2 mg Q12H PRN PO 12/15/16 20:30 (Dulcolax Supp) 10 mg DAILY PRN RECTAL 12/15/16 20:30 Lactulose 30 ml 30 ml DAILY PRN PO 12/15/16 20:30 Pharmacy Profile Note 0 ml @ 0 mls/hr UNSCH OTHER 12/15/16 20:30 Aztreonam 1000 mg/ Sodium Chloride 100 ml @ 200 mls/hr Q8H IV 12/16/16 06:00 12/17/16 05:53 Metronidazole 100 ml @ 100 mls/hr Q8H IV 12/16/16 05:00 12/17/16 11:28 (Vancomycin Inj/ NS 250 ml Inj) 262.5 ml @ 250 mls/hr Q12H IV 12/16/16 08:00 12/17/16 09:38 A/P Problem List: (1) Sepsis ICD Code: A41.9 Status: Acute (2) Groin abscess ICD Code: L02.214 Status: Acute (3) Dehydration ICD Code: E86.0 Status: Acute (4) Renal insufficiency ICD Code: N28.9 Status: Acute (5) DM (diabetes mellitus) ICD Code: E11.9 Status: Acute Assessment and Plan 56-year-old female with PMH of HTN, HLD, and DM who was brought to the ER secondary to episode of confusion noted by friends. Patient is here for a conference and visiting from [place] however believed she was still in her home town. Friends became concerned and called EMS. Pt endorses fever and 3day history of abscess at right groin however has not sought medical attention. Sepsis: Meets sepsis criteria with +fever Tmax 102.7, tachycardia HR 99, + leukocytosis WBC 19K, source-abscess/cellulitis, see below. -Blood cultures with NGTD, continue to monitor -On antibiotics for abscess, see below -Monitor CBC, shows minimal improvement, WBC 18K -afebrile x24hrs, continue to monitor Right Groin Abscess: 1 week, no previous antibiotics, did not seek medical attention. -S/p I&D in ER on 12/15 of 10cm x 3cm abscess w/ foul-smelling, purulent drainage. -Continue antibiotics with IV Vanc/Azactam/Flagyl as penicillin allergic. -Follow up wound cultures. -Consult general surgery, plan for I&D +/- wound vac placement today -Pain control with [place] prn pain scale and IV morphine prn breakthrough pain CLEMENTINA secondary to Dehydration: Creatinine 1.01, no previous labs for comparison. -Given IVF for hydration. -Renal function improved, Cr 0.88 -Continue to monitor while on vanco UTI: UA with +large leuks, WBCs. -on antibiotics as above -urine culture with mixed gram positive elvin DM: Blood glucose fairly well controlled. -Hold patient's metformin while in hospital for now -Monitor Accu-cheks and cover with SSI DVT Prophylaxis: Teds/SCDs. Avoid chemoprophylaxis with upcoming I&D. Problem Qualifiers (1) Sepsis: Qualified Code: A41.9 - Sepsis, due to unspecified organism Lina Murguia PA-C Dec 17, 2016 12:33 pm
[2016-12-17] MEDS: ACETAMINOPHEN/HYDROcodone 325 MG/7.5 MG TAB PO PRN (13:23)
[2016-12-17 16:00] VITALS: BP 107/59; PULSE 66; RESP 20; TEMP 98; O2SAT 97
[2016-12-17] MEDS ORDERED: SUGAMMADEX SODIUM 200 MG/2 ML VIAL IV PUSH ONE ×2 (18:12)
[2016-12-17] MEDS ORDERED: DO NOT ADM ANY ANTICOAGULANT DRUGS PRN (18:12)
[2016-12-17] MEDS ORDERED: fentaNYL CITRATE 250 MCG/5 ML AMP ONE (18:22)
[2016-12-17] MEDS ORDERED: MIDAZOLAM HCL 2 MG/2 ML VIAL ONE (18:22)
[2016-12-17 20:00] VITALS: BP 94/50; PULSE 75; RESP 18; TEMP 98.4; O2SAT 94
[2016-12-17] MEDS: VANCOMYCIN INJ 1,750 MG in SODIUM CHLORID 0.9% 500 ML INJ 500 ML IV SCH (21:15)
[2016-12-18] MEDS: AZTREONAM INJ 1,000 MG in SODIUM CHLORIDE 0.9% INJ 100 ML IV SCH ×3 (05:47→21:23)
[2016-12-18] MEDS: metroNIDAZOLE 500 MG INJ 100 ML IV SCH ×3 (05:47→21:23)
[2016-12-18] MEDS: INSULIN ASPART SUPPLEMENTAL SCALE SQ SCH ×4 (05:48→21:20)
[2016-12-18 08:00] VITALS: BP 109/55; PULSE 56; RESP 20; TEMP 97.4; O2SAT 96
[2016-12-18 08:12] VITALS: PULSE 56
[2016-12-18] MEDS: DOCUSATE SODIUM 50 MG/SENNA 8.6 MG TAB PO SCH ×2 (08:38→21:24)
[2016-12-18] MEDS: SODIUM CHLORIDE 0.9% FLUSH 10 ML FLUSH IV FLUSH SCH ×2 (08:38→21:00)
[2016-12-18] MEDS: SODIUM CHLOR 0.9% 1000 ML INJ 1,000 ML IV SCH ×2 (08:38→16:31)
[2016-12-18] MEDS: VANCOMYCIN INJ 1,750 MG in SODIUM CHLORID 0.9% 500 ML INJ 500 ML IV SCH ×2 (09:26→21:21)
--- NOTE | 2016-12-18 09:56 | HHI.PR ---
Subjective Remarks The patient was resting comfortably in bed. She wanted to go home as soon as possible. She said she wasn't getting her home medications and was wondering about that. She said that she would need home health care set up in [place] through her primary care doctor. Discussed with surgery. Objective Vitals Vital Signs Date Time Temp Pulse Resp B/P Pulse Ox O2 Delivery O2 Flow Rate FiO2 12/18/16 08:00 97.4 56 20 109/55 96 12/17/16 20:00 98.4 75 18 94/50 94 12/17/16 19:00 98.3 77 19 111/56 98 Nasal Cannula 2 12/17/16 18:45 77 25 109/56 97 Nasal Cannula 2 12/17/16 18:30 79 22 107/50 96 Nasal Cannula 2 12/17/16 18:18 70 19 128/59 100 12/17/16 18:15 87 14 199/81 94 Simple Mask 6 12/17/16 18:14 98 10 238/102 91 12/17/16 18:12 98.0 92 10 181/117 88 Simple Mask 6 12/17/16 16:00 Room Air 12/17/16 16:00 98.0 66 20 107/59 97 12/17/16 12:00 Room Air 12/17/16 12:00 97.9 74 20 117/78 95 I/O 12/17/16 12/17/16 12/17/16 12/18/16 12/18/16 12/18/16 07:00 15:00 23:00 07:00 15:00 23:00 Intake Total 953 ml 1032 ml 1275 ml Output Total 10 ml Balance 953 ml 1032 ml 1265 ml Intake Oral 120 ml 500 ml IV Total 833 ml 1032 ml 75 ml Other 700 ml Estimated Blood Loss 10 ml # Voids 2 1 # Bowel Movements 0 Result Diagram: 12/17/16 0830 12/17/16 0830 Imaging Last Impressions Chest X-Ray 12/15/169 Signed Impressions: Service Date/Time: Thursday, December 15, 2016 18:57 - CONCLUSION: No acute disease. David Fermin MD Soft Tissue Ultrasound 12/15/16 0000 Signed Impressions: Service Date/Time: Thursday, December 15, 2016 19:03 - CONCLUSION: 1. Complex fluid collection in right groin as above. Differential diagnosis includes infection and abscess. David Fermin MD Objective Remarks GENERAL: Well-nourished, well-developed female in NAD. SKIN: Warm and dry. Right groin wound with wound VAC in place. HEENT: Normocephalic. Atraumatic. Pupils equal and round. Mucous membranes pink and moist. NECK: Supple. Trachea midline. CARDIOVASCULAR: Regular rate and rhythm. S1, S2 noted. No murmur appreciated. RESPIRATORY: No accessory muscle use. Clear to auscultation. Breath sounds equal bilaterally. GASTROINTESTINAL: Abdomen soft, non-tender, nondistended. Normoactive bowel sounds x4. MUSCULOSKELETAL: No obvious deformities. Extremities without clubbing, cyanosis , or edema. NEUROLOGICAL: Awake and alert. No obvious cranial nerve deficits. Motor grossly within normal limits. Normal speech. PSYCHIATRIC: Appropriate mood and affect; insight and judgment normal. Procedures Incision and drainage Medications and IVs Current Medications Medications (Trade) Dose Ordered Sig/Rin Route Start Time Stop Time Status Last Admin (D50w (Vial) Inj) 50 ml UNSCH PRN IV 12/15/16 20:30 Glucagon 1 mg 1 mg UNSCH PRN OTHER 12/15/16 20:30 (NS 1000 ml Inj) 1,000 ml @ 100 mls/hr Q10H IV 12/15/16 21:00 12/18/16 08:38 (NS Flush) 2 ml UNSCH PRN IV FLUSH 12/15/16 20:30 (NS Flush) 2 ml BID IV FLUSH 12/15/16 21:00 12/17/16 21:18 (Zofran Inj) 4 mg Q6H PRN IVP 12/15/16 20:30 (Tylenol) 650 mg Q6H PRN PO 12/15/16 20:30 12/16/16 03:25 ([place] 5-325 Mg) 1 tab Q4H PRN PO 12/15/16 20:30 12/17/16 04:22 (Morphine Inj) 2 mg Q3H PRN IV 12/15/16 20:30 (Anali-Colace) 1 tab BID PO 12/15/16 21:00 12/16/16 20:14 (Milk Of Magnesia Liq) 30 ml Q12H PRN PO 12/15/16 20:30 (Senokot) 17.2 mg Q12H PRN PO 12/15/16 20:30 (Dulcolax Supp) 10 mg DAILY PRN RECTAL 12/15/16 20:30 Lactulose 30 ml 30 ml DAILY PRN PO 12/15/16 20:30 Pharmacy Profile Note 0 ml @ 0 mls/hr UNSCH OTHER 12/15/16 20:30 Aztreonam 1000 mg/ Sodium Chloride 100 ml @ 200 mls/hr Q8H IV 12/16/16 06:00 12/18/16 05:47 Metronidazole 100 ml @ 100 mls/hr Q8H IV 12/16/16 05:00 12/18/16 05:47 (Vancomycin Inj/ NS 500 ml Inj) 517.5 ml @ 250 mls/hr Q12H IV 12/17/16 20:00 12/18/16 09:26 Miscellaneous Information SPECIFIC LAB TO BE LIZA... ONCE ONCE .XX 12/19/16 07:45 12/19/16 07:46 ([place] 7.5-325 Mg) 1 tab Q4H PRN PO 12/17/16 12:30 12/17/16 13:23 Miscellaneous Information ALL NURSING DEPARTME... UNSCH PRN .XX 12/17/16 18:12 12/18/16 18:11 A/P Problem List: (1) Sepsis ICD Code: A41.9 Status: Acute (2) Groin abscess ICD Code: L02.214 Status: Acute (3) Dehydration ICD Code: E86.0 Status: Acute (4) Renal insufficiency ICD Code: N28.9 Status: Acute (5) DM (diabetes mellitus) ICD Code: E11.9 Status: Acute Assessment and Plan 56-year-old female with PMH of HTN, HLD, and DM who was brought to the ER secondary to episode of confusion noted by friends. Patient is here for a conference and visiting from [place] however believed she was still in her home town. Friends became concerned and called EMS. Pt endorses fever and 3day history of abscess at right groin however has not sought medical attention. Sepsis: Meets sepsis criteria with +fever Tmax 102.7, tachycardia HR 99, + leukocytosis WBC 19K, source-abscess/cellulitis, see below. -Blood cultures with NGTD, continue to monitor -On antibiotics for abscess, see below -Monitor CBC, shows minimal improvement, WBC 18K -afebrile x24hrs, continue to monitor Right Groin Abscess: 1 week, no previous antibiotics, did not seek medical attention. -S/p I&D in ER on 12/15 of 10cm x 3cm abscess w/ foul-smelling, purulent drainage. -Continue antibiotics with IV Vanc/Azactam/Flagyl as penicillin allergic. -Follow up wound cultures. -Consulted general surgery, s/p I&D +/- wound vac placement 12/17. Will have dressings changed on . Will need [facility] set up through her PCP in [place] (Dr. Goodrich [phone]) -Pain control with [place] prn pain scale and IV morphine prn breakthrough pain [place] secondary to Dehydration: Creatinine 1.01, no previous labs for comparison. -Given IVF for hydration. -Renal function improved, Cr 0.88 -Continue to monitor while on vanco DM: Blood glucose fairly well controlled. -Hold patient's metformin while in hospital for now -Monitor Accu-cheks and cover with SSI -Resume home medications for neuropathy DVT Prophylaxis: Teds/SCDs. Avoid chemoprophylaxis with upcoming I&D. Discharge Planning Awaiting surgical clearance Problem Qualifiers (1) Sepsis: Qualified Code: A41.9 - Sepsis, due to unspecified organism Ronen Valladares DO Dec 18, 2016 09:56
[2016-12-18] MEDS: LISINOPRIL 5 MG TAB PO SCH (11:10)
[2016-12-18] MEDS: GABAPENTIN 300 MG CAP PO SCH ×3 (11:10→16:24)
[2016-12-18] MEDS: CETIRIZINE HCL 10 MG TAB PO SCH (11:10)
--- NOTE | 2016-12-18 11:39 | HHI.PR ---
Subjective Subjective Notes DAILY PROGRESS NOTE FOR SURGICAL ATTENDING, DR. KARRI MCCABE Resting in bed Cancelled flight back to [place] for today Pain controlled Objective Vitals/I&O Vital Signs Date Time Temp Pulse Resp B/P Pulse Ox O2 Delivery O2 Flow Rate FiO2 12/18/16 08:00 Room Air 12/18/16 08:00 97.4 56 20 109/55 96 12/17/16 19:00 2 Labs Date/Time Procedure Status Source Growth 12/17/16 17:55 Gram Stain - Final Resulted Wound Groin 12/17/16 17:55 Wound Culture Resulted Wound Groin Pending 12/17/16 17:55 Fungal Smear - Final Resulted Wound Groin NO FUNGAL ELEMENTS SEEN. 12/17/16 17:55 Fungal Culture Resulted Wound Groin Pending 12/17/16 17:55 Acid Fast Stain Received Wound Groin Pending 12/17/16 17:55 Mycobacterial Culture Received Wound Groin Pending 12/15/16 22:15 Urine Culture - Final Complete Urine Catheterized Urine 50-100,000 CFU/ML MIXED GRAM POSITIVE... 12/15/16 19:00 Aerobic Blood Culture - Preliminary Resulted Blood Peripheral NO GROWTH IN 3 DAYS 12/15/16 19:00 Anaerobic Blood Culture - Preliminary Resulted Blood Peripheral NO GROWTH IN 3 DAYS Radiology Last Impressions Chest X-Ray 12/15/16 1859 Signed Impressions: Service Date/Time: Thursday, December 15, 2016 18:57 - CONCLUSION: No acute disease. Karri Fermin MD Soft Tissue Ultrasound 12/15/16 0000 Signed Impressions: Service Date/Time: Thursday, December 15, 2016 19:03 - CONCLUSION: 1. Complex fluid collection in right groin as above. Differential diagnosis includes infection and abscess. Karri Fermin MD Cardiovascular: Regular Lungs: Clear Abdomen: Non-distended, Non-tender Extremities: Other Narrative Exam RIGHT groin Wound Vac in place with good seal A/P Problem List: (1) Abscess (2) Dehydration (3) Sepsis (4) DM (diabetes mellitus) (5) Groin abscess Assessment and Plan 56 year old female with RIGHT groin wound -POD1 I&D and Wound Vac placement -Regular diet -Continue antibiotics -Wound Vac forms filled out and with CM -Consult Wound team--plan for change on -Possible DC Saturday -Discussed with Dr. Valladares Attending Statement NOTE FOR SURGICAL ATTENDING, DR. KARRI MCCABE I agree with above assessment and plan. The exam, history, and the medical decision-making described in the above note were completed with the assistance of the mid-level provider. I reviewed and agree with the findings presented. I attest that I had a [id number] encounter with the patient on the same day, and personally performed and documented my assessment and findings in the medical record. The following services were provided during this hospital visit: Chart data review, vital sign assessments/reviewing monitor data Review of consultations notes if present. Medication orders/review and/or management Ordering and/or reviewing lab tests Ordering and/or interpreting/reviewing x-rays and/or diagnostic studies Care of the patient and discussion of the patient with the care team Documentation time To help prompt me to consider important information that might be impacting today's encounter and assessment, information from prior notes written by myself or my colleagues may have been "brought forward/copy and pasted" into today's note. Problem Qualifiers (1) Sepsis: Qualified Code: A41.9 - Sepsis, due to unspecified organism Barbara Chadwick Dec 18, 2016 11:39 Karri Mccabe MD Dec 19, 2016 08:15
--- NOTE | 2016-12-18 11:41 | HHI.FF ---
Face to Face Verification Diagnosis: (1) Abscess (2) Groin abscess Home Health Nursing Order: Wound care and dressing changes Instructions: Wound Vac: change Saturday---125 mm Hg continuos suction I have seen patient Vidya Mcarthur on 12/18/16. My clinical findings support the need for the requested home health care services because: Limited ability to care for self High risk of falls I certify that my clinical findings support that this patient is homebound because: Post-op weakness Barbara Chadwick Dec 18, 2016 11:40
[2016-12-18 12:00] VITALS: BP 120/58; PULSE 51; RESP 20; TEMP 97.3; O2SAT 97
[2016-12-18] MEDS ORDERED: GABAPENTIN 300 MG CAP PO SCH (13:00)
[2016-12-18 16:00] VITALS: BP 93/52; PULSE 70; RESP 20; TEMP 97.9; O2SAT 96
[2016-12-18 20:00] VITALS: BP 106/57; PULSE 54; RESP 19; TEMP 98.2; O2SAT 95
[2016-12-18 20:18] VITALS: PULSE 58
[2016-12-18] MEDS: ACETAMINOPHEN/HYDROcodone 325 MG/7.5 MG TAB PO PRN (21:24)
[2016-12-18] MEDS: TOPIRAMATE 25 MG TAB PO SCH (21:24)
[2016-12-18] MEDS ORDERED: TEMAZEPAM 15 MG CAP PO ONE (21:45)
[2016-12-19] MEDS: SODIUM CHLOR 0.9% 1000 ML INJ 1,000 ML IV SCH ×2 (05:00→13:07)
[2016-12-19] MEDS: metroNIDAZOLE 500 MG INJ 100 ML IV SCH ×3 (05:20→20:45)
[2016-12-19] MEDS: AZTREONAM INJ 1,000 MG in SODIUM CHLORIDE 0.9% INJ 100 ML IV SCH ×3 (05:20→20:45)
[2016-12-19] MEDS: INSULIN ASPART SUPPLEMENTAL SCALE SQ SCH ×3 (06:57→21:00)
[2016-12-19] MEDS ORDERED: PHARMACY ORDERED LAB ONE (07:45)
[2016-12-19 08:00] VITALS: BP 103/52; PULSE 53; RESP 18; TEMP 97.4; O2SAT 95
[2016-12-19] MEDS: SODIUM CHLORIDE 0.9% FLUSH 10 ML FLUSH IV FLUSH SCH ×2 (08:01→20:44)
[2016-12-19] MEDS: GABAPENTIN 300 MG CAP PO SCH ×3 (08:01→17:41)
[2016-12-19] MEDS: CETIRIZINE HCL 10 MG TAB PO SCH (08:01)
[2016-12-19] MEDS: DOCUSATE SODIUM 50 MG/SENNA 8.6 MG TAB PO SCH ×3 (08:02→20:51)
[2016-12-19] MEDS: LISINOPRIL 5 MG TAB PO SCH (08:02)
[2016-12-19] MEDS: VANCOMYCIN INJ 1,750 MG in SODIUM CHLORID 0.9% 500 ML INJ 500 ML IV SCH ×2 (08:02→20:44)
[2016-12-19 09:34] LABS: VANCOMYCIN TROUGH 26.4 MCG/ML (5.0-10.0)
[2016-12-19] MEDS ORDERED: IBUPROFEN 400 MG TAB PO PRN (10:30)
--- NOTE | 2016-12-19 10:30 | MP ---
cc: KARRI MCCABE M.D. DATE OF SURGERY: 12/17/2016 PREOPERATIVE DIAGNOSIS Right groin abscess. POSTOPERATIVE DIAGNOSIS Right groin abscess. PROCEDURE Wide debridement, irrigation, incision and drainage of skin and subq tissue with placement of vac of 15 cm abscess by 3 cm wide by 4 cm deep. ANESTHESIA General. SURGEON Dr. Mccabe. INDICATION This is a pleasant 56-year-old female who came in to have an abscess that was causing mental status change. It was drained in the emergency room with some success, however, over the 24 hours it appeared that it needed further formal debridement in the operating room. PROCEDURE The patient was taken to the operating room and placed in the supine position. After anesthesia her right groin is prepped with Betadine. We are able to place a hemostat all the way to the edge of the hemostat laterally through this opening and medially about 8 cm. We just simply make an incision overlying the abscess cavity that measures approximately 15 cm in length, starting at the cruciate incision that is in the groin. Purulent material was returned, we cultured this for further evaluation. Necrotic deep subcutaneous tissue, adipose tissue was removed by sharp dissection and blunt dissection. Some of the fatty tissue looks necrotic. We debrided this to normal-appearing tissue that bleeds which is stopped with electrocautery device. After the blunt and sharp dissection debridement was done we then irrigate copiously. I measured the wound, it is approximately 15 cm in length, about 3 cm in width and about 4-5 cm deep. Because of induration and the location of this wound, I think she is an excellent candidate for vac therapy. The sponge was cut to size so it fits into the defect and is placed to 125 mmHg suction per the protocol on the vac set. The patient tolerated the procedure well and had no immediate postop complications. MD ROLANDO Cantor/EMIR /6:01 PM /10:13 AM JAZZ
--- NOTE | 2016-12-19 10:31 | HHI.PR ---
Subjective Remarks The patient wanted to clarify her pain medication regimen. She was wondering when she would be discharged from the hospital so she could make arrangements to go back home. She had no acute complaints. She requested a stronger sleeping medication. Objective Vitals Vital Signs Date Time Temp Pulse Resp B/P Pulse Ox O2 Delivery O2 Flow Rate FiO2 12/18/16 21:37 Room Air 12/18/16 20:18 58 12/18/16 20:00 98.2 54 19 106/57 95 12/18/16 16:00 97.9 70 20 93/52 96 12/18/16 16:00 Room Air 12/18/16 12:00 Room Air 12/18/16 12:00 97.3 51 20 120/58 97 I/O 12/18/16 12/18/16 12/18/16 12/19/16 12/19/16 12/19/16 07:00 15:00 23:00 07:00 15:00 23:00 Intake Total 2347 ml Output Total 600 ml Balance 1747 ml Intake Oral 240 ml IV Total 2107 ml Output Urine Total 600 ml # Bowel Movements 1 Result Diagram: 12/17/16 0830 12/19/16 0630 Imaging Last Impressions Chest X-Ray 12/15/16 1859 Signed Impressions: Service Date/Time: Thursday, December 15, 2016 18:57 - CONCLUSION: No acute disease. David Fermin MD Soft Tissue Ultrasound 12/15/16 0000 Signed Impressions: Service Date/Time: Thursday, December 15, 2016 19:03 - CONCLUSION: 1. Complex fluid collection in right groin as above. Differential diagnosis includes infection and abscess. David Fermin MD Objective Remarks GENERAL: Well-nourished, well-developed female in NAD. SKIN: Warm and dry. Right groin wound with wound VAC in place. HEENT: Normocephalic. Atraumatic. Pupils equal and round. Mucous membranes pink and moist. NECK: Supple. Trachea midline. CARDIOVASCULAR: Regular rate and rhythm. S1, S2 noted. No murmur appreciated. RESPIRATORY: No accessory muscle use. Clear to auscultation. Breath sounds equal bilaterally. GASTROINTESTINAL: Abdomen soft, non-tender, nondistended. Normoactive bowel sounds x4. MUSCULOSKELETAL: No obvious deformities. Extremities without clubbing, cyanosis , or edema. NEUROLOGICAL: Awake and alert. No obvious cranial nerve deficits. Motor grossly within normal limits. Normal speech. PSYCHIATRIC: Appropriate mood and affect; insight and judgment normal. Procedures Incision and drainage Medications and IVs Current Medications Medications (Trade) Dose Ordered Sig/Rin Route Start Time Stop Time Status Last Admin (D50w (Vial) Inj) 50 ml UNSCH PRN IV 12/15/16 20:30 Glucagon 1 mg 1 mg UNSCH PRN OTHER 12/15/16 20:30 (NS 1000 ml Inj) 1,000 ml @ 100 mls/hr Q10H IV 12/15/16 21:00 12/19/16 05:00 (NS Flush) 2 ml UNSCH PRN IV FLUSH 12/15/16 20:30 (NS Flush) 2 ml BID IV FLUSH 12/15/16 21:00 12/19/16 08:01 (Zofran Inj) 4 mg Q6H PRN IVP 12/15/16 20:30 (Tylenol) 650 mg Q6H PRN PO 12/15/16 20:30 12/16/16 03:25 ([place] 5-325 Mg) 1 tab Q4H PRN PO 12/15/16 20:30 12/17/16 04:22 (Morphine Inj) 2 mg Q3H PRN IV 12/15/16 20:30 (Anali-Colace) 1 tab BID PO 12/15/16 21:00 12/19/16 08:02 (Milk Of Magnesia Liq) 30 ml Q12H PRN PO 12/15/16 20:30 (Senokot) 17.2 mg Q12H PRN PO 12/15/16 20:30 (Dulcolax Supp) 10 mg DAILY PRN RECTAL 12/15/16 20:30 Lactulose 30 ml 30 ml DAILY PRN PO 12/15/16 20:30 Pharmacy Profile Note 0 ml @ 0 mls/hr UNSCH OTHER 12/15/16 20:30 Aztreonam 1000 mg/ Sodium Chloride 100 ml @ 200 mls/hr Q8H IV 12/16/16 06:00 12/19/16 05:20 Metronidazole 100 ml @ 100 mls/hr Q8H IV 12/16/16 05:00 12/19/16 05:20 (Vancomycin Inj/ NS 500 ml Inj) 517.5 ml @ 250 mls/hr Q12H IV 12/17/16 20:00 12/19/16 08:02 ([place] 7.5-325 Mg) 1 tab Q4H PRN PO 12/17/16 12:30 12/18/16 21:24 (ZyrTEC) 10 mg DAILY PO 12/18/16 10:15 12/19/16 08:01 (Prinivil) 5 mg DAILY PO 12/18/16 10:15 12/18/16 11:10 (Topamax) 50 mg HS PO 12/18/16 21:00 12/18/16 21:24 (Neurontin) 600 mg TID PO 12/18/16 10:15 12/19/16 08:01 A/P Problem List: (1) Sepsis ICD Code: A41.9 Status: Acute (2) Groin abscess ICD Code: L02.214 Status: Acute (3) Dehydration ICD Code: E86.0 Status: Acute (4) Renal insufficiency ICD Code: N28.9 Status: Acute (5) DM (diabetes mellitus) ICD Code: E11.9 Status: Acute Assessment and Plan 56-year-old female with PMH of HTN, HLD, and DM who was brought to the ER secondary to episode of confusion noted by friends. Patient is here for a conference and visiting from [place] however believed she was still in her home town. Friends became concerned and called EMS. Pt endorses fever and 3day history of abscess at right groin however has not sought medical attention. Sepsis: Meets sepsis criteria with +fever Tmax 102.7, tachycardia HR 99, + leukocytosis WBC 19K, source-abscess/cellulitis, see below. -Blood cultures with NGTD, continue to monitor -On antibiotics for abscess, see below -Monitor CBC Right Groin Abscess: 1 week, no previous antibiotics, did not seek medical attention. -S/p I&D in ER on 12/15 of 10cm x 3cm abscess w/ foul-smelling, purulent drainage. -Continue antibiotics with IV Vanc/Azactam/Flagyl as penicillin allergic. -Follow up wound cultures. -Consulted general surgery, s/p I&D +/- wound vac placement 12/17. Will have dressings changed on . Will need HHC set up through her PCP in [place] (Dr. Goodrich [phone]) -Pain control with [place] prn pain scale and IV morphine prn breakthrough pain -Physical therapy eval DM: Blood glucose fairly well controlled 12/19. -Hold patient's metformin while in hospital for now -Monitor Accu-cheks and cover with SSI -Resume home medications for neuropathy DVT Prophylaxis: Lovenox Discharge Planning Awaiting surgical clearance Problem Qualifiers (1) Sepsis: Qualified Code: A41.9 - Sepsis, due to unspecified organism Ronen Valladares DO Dec 19, 2016 10:31
[2016-12-19 12:00] VITALS: BP 122/58; PULSE 54; RESP 18; TEMP 97.8; O2SAT 98
[2016-12-19] MEDS: traMADol HCL 50 MG TAB PO SCH ×3 (13:00→17:41)
[2016-12-19] MEDS: ENOXAPARIN SODIUM 40 MG/0.4 ML SYRINGE SQ SCH (13:04)
[2016-12-19 16:00] VITALS: BP 99/58; PULSE 52; RESP 18; TEMP 97.7; O2SAT 94
[2016-12-19 20:00] VITALS: BP 125/64; PULSE 55; PULSE 57; RESP 16; TEMP 98.1; O2SAT 97
[2016-12-19] MEDS: TOPIRAMATE 25 MG TAB PO SCH (20:44)
[2016-12-19] MEDS: oxyCODONE/ACETAMINOPHEN 5 MG/325 MG TAB PO PRN (20:44)
[2016-12-19] MEDS: ZOLPIDEM TARTRATE 5 MG TAB PO PRN (21:59)
[2016-12-19 23:35] VITALS: BP 103/53; PULSE 61; RESP 16; TEMP 97.6; O2SAT 94
[2016-12-20] VITALS (7 sets, daily range): BP systolic 116–167; BP diastolic 56–79; PULSE 59–69; RESP 16–18; TEMP 97.6–98.7; O2SAT 92–97
[2016-12-20] MEDS: SODIUM CHLOR 0.9% 1000 ML INJ 1,000 ML IV SCH ×3 (01:00→20:31)
[2016-12-20] MEDS: metroNIDAZOLE 500 MG INJ 100 ML IV SCH ×3 (05:38→20:32)
[2016-12-20] MEDS: AZTREONAM INJ 1,000 MG in SODIUM CHLORIDE 0.9% INJ 100 ML IV SCH ×3 (05:38→22:11)
[2016-12-20] MEDS: INSULIN ASPART SUPPLEMENTAL SCALE SQ SCH ×4 (07:00→20:29)
[2016-12-20] MEDS ORDERED: PHARMACY ORDERED LAB ONE (07:45)
[2016-12-20] MEDS: SODIUM CHLORIDE 0.9% FLUSH 10 ML FLUSH IV FLUSH SCH ×2 (09:00→20:31)
[2016-12-20 09:21] LABS: BASOPHIL % 0.4 % (0.0-2.0); EOSINOPHIL # 0.3 TH/MM3 (0-0.4); EOSINOPHIL % 2.9 % (0.0-4.0); HEMATOCRIT 33.9 % (35.0-46.0); HEMO FLAGS DIFF FINAL; LYMPH % 18.8 % (9.0-44.0); LYMPHOCYTE # 1.9 TH/MM3 (1.0-4.8); MEAN CELL VOLUME 88.2 FL (80.0-100.0); MEAN CORPUSCULAR HEMOGLOBIN 28.9 PG (27.0-34.0); MEAN CORPUSCULAR HGB CONC 32.8 % (32.0-36.0); MONO % 8.6 % (0.0-8.0); NEUT % 69.3 % (16.0-70.0); PLATELET COUNT 206 TH/MM3 (150-450); RED BLOOD COUNT 3.84 MIL/MM3 (4.00-5.30); RED CELL DISTRIBUTION WIDTH 16.3 % (11.6-17.2); WHITE BLOOD COUNT 10.1 TH/MM3 (4.0-11.0)
[2016-12-20] MEDS: DOCUSATE SODIUM 50 MG/SENNA 8.6 MG TAB PO SCH ×2 (09:42→20:31)
[2016-12-20] MEDS: CETIRIZINE HCL 10 MG TAB PO SCH (09:42)
[2016-12-20] MEDS: GABAPENTIN 300 MG CAP PO SCH ×3 (09:42→17:34)
[2016-12-20] MEDS: traMADol HCL 50 MG TAB PO SCH ×3 (09:43→17:34)
[2016-12-20] MEDS: LISINOPRIL 5 MG TAB PO SCH (09:43)
[2016-12-20] MEDS: VANCOMYCIN INJ 1,750 MG in SODIUM CHLORID 0.9% 500 ML INJ 500 ML IV SCH (09:47)
--- NOTE | 2016-12-20 10:04 | HHI.PR ---
Subjective Remarks The patient was sitting up in bed. She had no acute complaints. She said she slept better. Her pain was controlled well. She has been tolerating a diet. Discussed with nursing. Objective Vitals Vital Signs Date Time Temp Pulse Resp B/P Pulse Ox O2 Delivery O2 Flow Rate FiO2 12/20/16 08:00 98.5 69 18 143/65 94 12/20/16 05:12 97.9 67 16 164/79 97 12/19/16 23:35 97.6 61 16 103/53 94 12/19/16 20:52 Room Air 12/19/16 20:00 55 12/19/16 20:00 98.1 57 16 125/64 97 12/19/16 16:00 97.7 52 18 99/58 94 12/19/16 12:19 Room Air 12/19/16 12:00 97.8 54 18 122/58 98 I/O 12/19/16 12/19/16 12/19/16 12/20/16 12/20/16 12/20/16 07:00 15:00 23:00 07:00 15:00 23:00 Intake Total 1555 ml 240 ml Output Total 400 ml Balance 1155 ml 240 ml Intake Oral 1555 ml 240 ml Output Urine Total 400 ml # Voids 2 4 # Bowel Movements 1 0 Result Diagram: 12/20/16 0830 12/19/16 0630 Imaging Last Impressions Chest X-Ray 12/15/16 1859 Signed Impressions: Service Date/Time: Thursday, December 15, 2016 18:57 - CONCLUSION: No acute disease. David Fermin MD Soft Tissue Ultrasound 12/15/16 0000 Signed Impressions: Service Date/Time: Thursday, December 15, 2016 19:03 - CONCLUSION: 1. Complex fluid collection in right groin as above. Differential diagnosis includes infection and abscess. David Fermin MD Objective Remarks GENERAL: Well-nourished, well-developed female in NAD. SKIN: Warm and dry. Right groin wound with wound VAC in place. HEENT: Normocephalic. Atraumatic. Pupils equal and round. Mucous membranes pink and moist. NECK: Supple. Trachea midline. CARDIOVASCULAR: Regular rate and rhythm. S1, S2 noted. No murmur appreciated. RESPIRATORY: No accessory muscle use. Clear to auscultation. Breath sounds equal bilaterally. GASTROINTESTINAL: Abdomen soft, non-tender, nondistended. Normoactive bowel sounds x4. MUSCULOSKELETAL: No obvious deformities. Extremities without clubbing, cyanosis , or edema. NEUROLOGICAL: Awake and alert. No obvious cranial nerve deficits. Motor grossly within normal limits. Normal speech. PSYCHIATRIC: Appropriate mood and affect; insight and judgment normal. Procedures Incision and drainage Medications and IVs Current Medications Medications (Trade) Dose Ordered Sig/Rin Route Start Time Stop Time Status Last Admin (D50w (Vial) Inj) 50 ml UNSCH PRN IV 12/15/16 20:30 Glucagon 1 mg 1 mg UNSCH PRN OTHER 12/15/16 20:30 (NS 1000 ml Inj) 1,000 ml @ 100 mls/hr Q10H IV 12/15/16 21:00 12/20/16 09:44 (NS Flush) 2 ml UNSCH PRN IV FLUSH 12/15/16 20:30 (NS Flush) 2 ml BID IV FLUSH 12/15/16 21:00 12/19/16 08:01 (Zofran Inj) 4 mg Q6H PRN IVP 12/15/16 20:30 (Tylenol) 650 mg Q6H PRN PO 12/15/16 20:30 12/16/16 03:25 (Morphine Inj) 2 mg Q3H PRN IV 12/15/16 20:30 (Anali-Colace) 1 tab BID PO 12/15/16 21:00 12/20/16 09:42 (Milk Of Magnesia Liq) 30 ml Q12H PRN PO 12/15/16 20:30 (Senokot) 17.2 mg Q12H PRN PO 12/15/16 20:30 (Dulcolax Supp) 10 mg DAILY PRN RECTAL 12/15/16 20:30 Lactulose 30 ml 30 ml DAILY PRN PO 12/15/16 20:30 Pharmacy Profile Note 0 ml @ 0 mls/hr UNSCH OTHER 12/15/16 20:30 Aztreonam 1000 mg/ Sodium Chloride 100 ml @ 200 mls/hr Q8H IV 12/16/16 06:00 12/20/16 05:38 Metronidazole 100 ml @ 100 mls/hr Q8H IV 12/16/16 05:00 12/20/16 05:38 (Vancomycin Inj/ NS 500 ml Inj) 517.5 ml @ 250 mls/hr Q12H IV 12/17/16 20:00 12/20/16 09:47 (ZyrTEC) 10 mg DAILY PO 12/18/16 10:15 12/20/16 09:42 (Prinivil) 5 mg DAILY PO 12/18/16 10:15 12/20/16 09:43 (Topamax) 50 mg HS PO 12/18/16 21:00 12/19/16 20:44 (Neurontin) 600 mg TID PO 12/18/16 10:15 12/20/16 09:42 (Ultram) 100 mg TID PO 12/19/16 10:30 12/20/16 09:43 (Percocet 5-325 Mg) 1 tab Q6H PRN PO 12/19/16 10:30 12/19/16 20:44 (Motrin) 400 mg Q8H PRN PO 12/19/16 10:30 (Ambien) 5 mg HS PRN PO 12/19/16 10:30 12/19/16 21:59 (Lovenox Inj) 40 mg Q24H SQ 12/19/16 13:00 12/19/16 13:04 A/P Problem List: (1) Sepsis ICD Code: A41.9 Status: Acute (2) Groin abscess ICD Code: L02.214 Status: Acute (3) Dehydration ICD Code: E86.0 Status: Acute (4) Renal insufficiency ICD Code: N28.9 Status: Acute (5) DM (diabetes mellitus) ICD Code: E11.9 Status: Acute Assessment and Plan 56-year-old female with PMH of HTN, HLD, and DM who was brought to the ER secondary to episode of confusion noted by friends. Patient is here for a conference and visiting from [place] however believed she was still in her home town. Friends became concerned and called EMS. Pt endorses fever and 3day history of abscess at right groin however has not sought medical attention. Sepsis: Meets sepsis criteria with +fever Tmax 102.7, tachycardia HR 99, + leukocytosis WBC 19K, source-abscess/cellulitis, see below. -Blood cultures with NGTD, continue to monitor -On antibiotics for abscess, see below -Monitor CBC. Leukocytosis resolved. Right Groin Abscess: 1 week, no previous antibiotics, did not seek medical attention. -S/p I&D in ER on 12/15 of 10cm x 3cm abscess w/ foul-smelling, purulent drainage. -Continue antibiotics with IV Vanc/Azactam/Flagyl as penicillin allergic. -Follow up wound cultures. No growth. -Consulted general surgery, s/p I&D +/- wound vac placement 12/17. Will have dressings changed 12/20. Will need HHC set up through her PCP in [place] ( Dr. Goodrich [phone]) -Pain control with [place] prn pain scale and IV morphine prn breakthrough pain -Physical therapy eval appreciated. DM: Blood glucose well controlled 12/20. -Hold patient's metformin while in hospital for now -Monitor Accu-cheks and cover with SSI -Resume home medications for neuropathy DVT Prophylaxis: Lovenox Discharge Planning Awaiting surgical clearance. Anticipate AM 12/21 Problem Qualifiers (1) Sepsis: Qualified Code: A41.9 - Sepsis, due to unspecified organism Ronen Valladares DO Dec 20, 2016 10:04
[2016-12-20] MEDS: oxyCODONE/ACETAMINOPHEN 5 MG/325 MG TAB PO PRN ×2 (11:29→20:32)
--- NOTE | 2016-12-20 13:08 | PD.WCN.NOT ---
Wound Consult Description: Consult for VAC MANAGEMENT of groin Wound VAC change per ROSIE Chadwick Communicated with: ROSIE Madrigal Patient KIKA Perez Recommendation: Follow discharge instructions provided for wound VAC dressing changes. Additional Information: Patient seen on with ROSIE Chadwick for wound VAC dressing change to right groin. Neg Pressure Wound Therapy Wound Location Wound Location: Right groin Wound Description Length: 2cm Width: 13.2cm Depth: 4.5cm Wound bed appearance: ~30% pink tissue ~30% non granulating tissue ~15% granulating tissue ~15% adipose tissue ~10% necrotic tissue Periwound appearance: Unremarkable Settings Suction: 125 mmHg, Continuous Intensity: Low Other Information: Bridged, Windowpaned Foam type: Black Number of pieces: 2 Additonal Information Patient seen on for wound VAC change to right groin. 1 piece black foam removed from wound on right groin. Wound was cleansed with NS and gauze, measured and described above with open wound margins and no active drainage status post debridement. Periwound was prepped with Cavilon barrier film spray prior to window paning. 1 piece black foam inserted into wound bed and 1 piece used to bridge wound to trac pad on right anterior hip. VAC settings at 125mmHg low continuous suction. Patient tolerated wound VAC removal fairly and wound VAC application well. Sandra Diallo [facility] Dec 20, 2016 13:08
--- NOTE | 2016-12-20 13:28 | HHI.PR ---
Subjective Subjective Notes Wound Vac changes with KIKA Flores Objective Vitals/I&O Vital Signs Date Time Temp Pulse Resp B/P Pulse Ox O2 Delivery O2 Flow Rate FiO2 12/20/16 12:50 20 12/20/16 12:00 97.6 63 167/67 95 12/20/16 10:52 Room Air 12/17/16 19:00 2 Labs Laboratory Tests Test 12/20/16 12/20/16 08:30 09:48 White Blood Count 10.1 Red Blood Count 3.84 Hemoglobin 11.1 Hematocrit 33.9 Mean Corpuscular Volume 88.2 Mean Corpuscular Hemoglobin 28.9 Mean Corpuscular Hemoglobin 32.8 Concent Red Cell Distribution Width 16.3 Platelet Count 206 Mean Platelet Volume 10.2 Neutrophils (%) (Auto) 69.3 Lymphocytes (%) (Auto) 18.8 Monocytes (%) (Auto) 8.6 Eosinophils (%) (Auto) 2.9 Basophils (%) (Auto) 0.4 Neutrophils # (Auto) 7.0 Lymphocytes # (Auto) 1.9 Monocytes # (Auto) 0.9 Eosinophils # (Auto) 0.3 Basophils # (Auto) 0.0 CBC Comment DIFF FINAL Differential Comment Vancomycin Level Trough 28.3 Date/Time Procedure Status Source Growth 12/17/16 17:55 Gram Stain - Final Complete Wound Groin 12/17/16 17:55 Wound Culture - Final Complete Wound Groin NO GROWTH IN 72 HRS.--AEROBICALLY OR ... 12/17/16 17:55 Fungal Smear - Final Resulted Wound Groin NO FUNGAL ELEMENTS SEEN. 12/17/16 17:55 Fungal Culture Resulted Wound Groin Pending 12/17/16 17:55 Acid Fast Stain - Final Resulted Wound Groin NO ACID FAST BACILLI SEEN 12/17/16 17:55 Mycobacterial Culture Resulted Wound Groin Pending 12/15/16 22:15 Urine Culture - Final Complete Urine Catheterized Urine 50-100,000 CFU/ML MIXED GRAM POSITIVE... 12/15/16 19:00 Aerobic Blood Culture - Final Complete Blood Peripheral NO GROWTH IN 5 DAYS 12/15/16 19:00 Anaerobic Blood Culture - Final Complete Blood Peripheral NO GROWTH IN 5 DAYS Radiology Last Impressions Chest X-Ray 12/15/16 7395 Signed Impressions: Service Date/Time: Thursday, December 15, 2016 18:57 - CONCLUSION: No acute disease. David Fermin MD Soft Tissue Ultrasound 12/15/16 0000 Signed Impressions: Service Date/Time: Thursday, December 15, 2016 19:03 - CONCLUSION: 1. Complex fluid collection in right groin as above. Differential diagnosis includes infection and abscess. David Fermin MD Cardiovascular: Regular Lungs: Clear Abdomen: Non-distended, Non-tender Extremities: No edema Narrative Exam RIGHT groin Wound Vac in place with good seal ---removed--- wound cleansed; wound bed without exudate or drainage. Wound Vac re applied A/P Problem List: (1) Abscess (2) Dehydration (3) Sepsis (4) DM (diabetes mellitus) (5) Groin abscess Assessment and Plan 56 year old female with RIGHT groin wound -s/p I&D and Wound Vac placement -Wound Vac changed today -Regular diet -Continue antibiotics -GS clear to DC--- will follow up with PCP in [place] -Discussed with Dr. Valladares Problem Qualifiers (1) Sepsis: Qualified Code: A41.9 - Sepsis, due to unspecified organism Barbara ChadwickP Dec 20, 2016 13:27
[2016-12-20] MEDS: ENOXAPARIN SODIUM 40 MG/0.4 ML SYRINGE SQ SCH (13:41)
[2016-12-20] MEDS: TOPIRAMATE 25 MG TAB PO SCH (20:31)
[2016-12-20] MEDS: ZOLPIDEM TARTRATE 5 MG TAB PO PRN (22:11)
[2016-12-21 04:10] VITALS: BP 128/61; PULSE 60; RESP 18; TEMP 97.3; O2SAT 97
[2016-12-21] MEDS: metroNIDAZOLE 500 MG INJ 100 ML IV SCH (04:51)
[2016-12-21] MEDS: SODIUM CHLOR 0.9% 1000 ML INJ 1,000 ML IV SCH (05:47)
[2016-12-21] MEDS: AZTREONAM INJ 1,000 MG in SODIUM CHLORIDE 0.9% INJ 100 ML IV SCH (05:47)
[2016-12-21] MEDS: INSULIN ASPART SUPPLEMENTAL SCALE SQ SCH (05:59)
[2016-12-21 08:00] VITALS: PULSE 74
[2016-12-21 08:05] VITALS: BP 156/72; PULSE 62; RESP 20; TEMP 97.9; O2SAT 95
[2016-12-21] MEDS ORDERED: LACTOBACILLUS ACIDOPHILUS TAB PO SCH (09:00)
[2016-12-21] MEDS: DOCUSATE SODIUM 50 MG/SENNA 8.6 MG TAB PO SCH (10:05)
[2016-12-21] MEDS: LISINOPRIL 5 MG TAB PO SCH (10:05)
[2016-12-21] MEDS: CETIRIZINE HCL 10 MG TAB PO SCH (10:06)
[2016-12-21] MEDS: GABAPENTIN 300 MG CAP PO SCH (10:06)
[2016-12-21] MEDS: traMADol HCL 50 MG TAB PO SCH (10:06)
[2016-12-21] MEDS: SODIUM CHLORIDE 0.9% FLUSH 10 ML FLUSH IV FLUSH SCH (10:10)
--- NOTE | 2016-12-21 10:23 | HHI.DCPOC ---
Discharge Care Plan Diagnosis: (1) Abscess (2) Groin abscess (3) DM (diabetes mellitus) (4) Sepsis (5) Renal insufficiency (6) Dehydration Goals to Promote Your Health * To prevent worsening of your condition and complications * To maintain your health at the optimal level Directions to Meet Your Goals Take your medications as prescribed Follow your dietary instruction Follow activity as directed Keep your appointments as scheduled Take your immunizations and boosters as scheduled If your symptoms worsen call your PCP, if no PCP go to Urgent Care Center or Emergency Room Smoking is Dangerous to Your Health. Avoid second hand smoke Call the 24-hour hour crisis hotline for domestic abuse at Ronen Valladares DO Dec 21, 2016 10:23
[2016-12-21] MEDS ORDERED: OXYC1TAB63 PO (10:28)
[2016-12-21] MEDS ORDERED: LACT PO (10:28)
[2016-12-21] MEDS ORDERED: CLIN150 PO (10:28)
--- NOTE | 2016-12-21 10:40 | HHI.DS ---
Discharge Summary Admission Date Dec 15, 2016 at 20:13 Discharge Date: Dec 21, 2016 Admitting Diagnosis sepsis, right groin abscess (1) Sepsis ICD Code: A41.9 (2) Groin abscess ICD Code: L02.214 Diagnosis: Principal (3) Dehydration ICD Code: E86.0 (4) Renal insufficiency ICD Code: N28.9 (5) DM (diabetes mellitus) ICD Code: E11.9 Procedures Incision and drainage Brief History - From Admission This is a 56-year-old female with PMH of HTN, Hyperlipidemia and DM who was brought to the ER secondary to episode of confusion noted by friends. Patient is here for a conference and visiting from [place] however believed she was still in her home town. Friends became concerned and called EMS. Pt does note fever today. Also stated she has abscess in right groin x3 days however did not seek medical attention for it. On arrival, BP 142/67, HR 87, O2 sat 98% on RA, Temp 102.7. He 15.6. Creatinine 1.01. GFR 57. Lactic Acid 1.7. INR 1.0. CXR with no acute findings. Soft Tissue US complex fluid collection right groin. On exam, pt noted to have large groin abscess approx 10cm wide, 3cm deep, s/p I& D in ER w/ significant amount of foul-smelling purulent drainage. Gen Sx consulted for further eval. S/p Blood/Wound Culture in ER, Vanc/Azactam/Flagyl due to PCN Allergy. CBC/BMP: 12/20/16 0830 12/21/16 0740 Significant Findings Laboratory Tests Test 12/19/16 12/20/16 12/20/16 12/21/16 06:30 08:30 09:48 07:40 Estimat Glomerular Filtration 71 ML/MIN (>89) 85 ML/MIN (>89) Rate Vancomycin Level Trough 26.4 MCG/ML 28.3 MCG/ML (5.0-10.0) (5.0-10.0) Red Blood Count 3.84 MIL/MM3 (4.00-5.30) Hemoglobin 11.1 GM/DL (11.6-15.3) Hematocrit 33.9 % (35.0-46.0) Monocytes (%) (Auto) 8.6 % (0.0-8.0) Imaging Last Impressions Chest X-Ray 12/15/16 1859 Signed Impressions: Service Date/Time: Thursday, December 15, 2016 18:57 - CONCLUSION: No acute disease. David Fermin MD Soft Tissue Ultrasound 12/15/16 0000 Signed Impressions: Service Date/Time: Thursday, December 15, 2016 19:03 - CONCLUSION: 1. Complex fluid collection in right groin as above. Differential diagnosis includes infection and abscess. David Fermin MD PE at Discharge GENERAL: Well-nourished, well-developed female in NAD. SKIN: Warm and dry. Right groin wound with wound VAC in place. HEENT: Normocephalic. Atraumatic. Pupils equal and round. Mucous membranes pink and moist. NECK: Supple. Trachea midline. CARDIOVASCULAR: Regular rate and rhythm. S1, S2 noted. No murmur appreciated. RESPIRATORY: No accessory muscle use. Clear to auscultation. Breath sounds equal bilaterally. GASTROINTESTINAL: Abdomen soft, non-tender, nondistended. Normoactive bowel sounds x4. MUSCULOSKELETAL: No obvious deformities. Extremities without clubbing, cyanosis , or edema. NEUROLOGICAL: Awake and alert. No obvious cranial nerve deficits. Motor grossly within normal limits. Normal speech. PSYCHIATRIC: Appropriate mood and affect; insight and judgment normal. Pt update on day of discharge The patient was sitting up in bed. She had questions about her portable wound VAC. She said she had a flight booked tomorrow. She said she will see her primary care on Saturday. No acute complaints. Hospital Course Right groin abscess 1 week, no previous antibiotics, did not seek medical attention. Met sepsis criteria with +fever Tmax 102.7, tachycardia HR 99, +leukocytosis WBC 19K. S/p I &D in ER on 12/15 of 10cm x 3cm abscess w/ foul-smelling, purulent drainage. She was continued on antibiotics with IV Vanc/Azactam/Flagyl. Consulted general surgery, s/p additional I&D with wound vac placement 12/17. She had her dressings changed 12/20. She received pain control as needed. Blood and wound cultures with no growth. She had HHC set up through her PCP in [place]. She will continue clindamycin and lactobacillus. DM We held the patient's metformin while in hospital. Will resume on discharge. We monitored Accu-cheks and covered with SSI. We resumed her home medications for neuropathy. Pt Condition on Discharge: Good Discharge Disposition: Disch w/ Home Health Serv Discharge Time: > 30 minutes Discharge Instructions DIET: Follow Instructions for: Diabetic Diet Activities you can perform: Weight Bearing as Patsy Follow up Referrals: PCP Follow-up - 2-3 Days New Medications: Clindamycin (Cleocin) 150 Mg Cap 450 MG PO Q6HR Infection Days 7 CAP Lactobacillus Acidophilus (Acidophilus/l-Sporogenes) 1 Tab Tab 1 TAB PO Q12HR Antibiotics Days 7 TAB Oxycodone-Acetaminophen (Oxycodone-Acetaminophen) 5-325 mg Tab 1 TAB PO Q6H PRN PAIN SCALE 1 TO 10 #20 TAB Continued Medications: Cetirizine HCl (Zyrtec) 10 Mg Capsule Gabapentin (Gabapentin) 600 Mg Tab 600 MG PO TID Pain Management #90 Ref 0 TAB Glipizide (Glipizide) 5 Mg Tab 5 MG PO BIDAC Take 30 minutes before a meal Blood Sugar Management #60 Ref 0 TAB Ibuprofen (Ibuprofen) 200 Mg Cap 200 MG PO Q6H PRN pain Ref 0 CAP Lisinopril (Lisinopril) 5 Mg Tab 5 MG PO DAILY Blood Pressure Management #30 Ref 0 TAB Metformin (Metformin) 500 Mg Tab 500 MG PO TIDPC With meals Blood Sugar Management #90 Ref 0 TAB Oxycodone-Acetaminophen (Percocet) 5-325 mg Tab 1 TAB PO DAILY PRN PAIN Ref 0 TAB Oxycodone-Acetaminophen (Percocet) 2.5-325 mg Tab 1 TAB PO Q4H PRN chronic pain Ref 2 TAB Riboflavin (Riboflavin) 50 Mg Tablet HS Topiramate (Topamax) 50 Mg Tab 50 MG PO HS Control Seizures #60 Ref 2 TAB Tramadol (Tramadol) 50 Mg Tab 50 MG PO Q4H PRN PAIN #2 Ref 0 TAB Ronen Valladares DO Dec 21, 2016 10:40 Riboflavin (Riboflavin) 50 Mg Tablet HS Topiramate (Topamax) 50 Mg Tab 50 MG PO HS Control Seizures #60 Ref 2 TAB Tramadol (Tramadol) 50 Mg Tab 50 MG PO Q4H PRN PAIN #2 Ref 0 TAB Ronen Valladares DO Dec 21, 2016 10:40
[2016-12-21] MEDS ORDERED: CLINDAMYCIN 150 MG CAP PO SCH (12:00)
[2016-12-21 12:05] VITALS: BP 158/70; PULSE 62; RESP 19; TEMP 98.1; O2SAT 95
== END 2016-12-21 13:58 | disposition home health service (06) | DRG 854 ==
LOC: NEPE 18:29 → NEDA 20:13 → N04B 22:02
PROVIDERS: ADMIT Hospitalist; ATTEND Hospitalist
PROC: 0H99XZZ Drainage of Perineum Skin, External Approach (ICD-10-PCS; principal; 2016-12-15)
PROC: 0JBB0ZZ Excision of Perineum Subcutaneous Tissue and Fascia, Open Approach (ICD-10-PCS; 2016-12-17)
PROC: 2W16X6Z Compression of Right Inguinal Region using Pressure Dressing (ICD-10-PCS; 2016-12-17)
DX: A41.9 Sepsis, unspecified organism (principal); L02.214 Cutaneous abscess of groin; E11.42 Type 2 diabetes mellitus with diabetic polyneuropathy; Z68.42 Body mass index [BMI] 45.0-49.9, adult; E66.01 Morbid (severe) obesity due to excess calories; N39.0 Urinary tract infection, site not specified; I10 Essential (primary) hypertension; E86.0 Dehydration; E78.5 Hyperlipidemia, unspecified; Z79.84 Long term (current) use of oral hypoglycemic drugs; Z88.0 Allergy status to penicillin; N28.9 Disorder of kidney and ureter, unspecified
CPT/HCPCS: 10061; 71010; 76937; 76999; 80048; 80053; 80202; 81001; 82565; 82948; 83605; 85025; 85610; 85730; 87015; 87040; 87070; 87086; 87102; 87116; 87205; 87206; 88304; 88305; J1650; J1815; J2250; J2405; J2710; J3010; J3370; J7030; J7040; J7050